=== PATIENT | male | born 1965 | race Caucasian/White ===

== ENCOUNTER 2023-04-03 09:18 | Emergency (ER) | payer BC, SELFPAY ==
[2023-04-03 09:26] VITALS: BP 170/100; PULSE 102; RESP 16; TEMP 36.6; O2SAT 99; BMI 24.4
--- NOTE | 2023-04-03 09:49 | CT_ITS ---
The [address] [address] Patient Name: KEZIA MAYFIELD MRN: [id number] date: 1965 Sex: M Assigned Patient Location: ER Current Patient Location: ER Accession/Order Number: [id number] Exam Date: 04/03/2023 10:10 Report Date: 04/03/2023 11:19 At the request of: LAWRENCE BOLDEN Procedure: CT abdomen pelvis w con CT abdomen pelvis w con, 04/03/2023 10:10 AM EDT INDICATION: Perirectal abscess COMPARISON: No prior CT scan of the abdomen and pelvis provided for comparison at the time of this dictation. TECHNIQUE: Axial images of the abdomen and pelvis were obtained after the administration of IV contrast. Multiplanar reformatted images were generated and reviewed as needed. Dose reduction techniques were achieved by using automated exposure control and/or adjustment of mA and/or kV according to patient size and/or use of iterative reconstruction technique. FINDINGS: No consolidation or effusion. Subcentimeter hypodensity posterior segment right hepatic lobe, too small to characterize. Sludge versus tiny calculi within the gallbladder lumen. The pancreas, spleen and adrenals are unremarkable. Symmetric nephrograms without evidence of obstruction. No urolithiasis. No perivesicular fat stranding. Prostate gland and seminal vesicles unremarkable. No aortic aneurysm. No bowel obstruction or acute focal inflammation. Normal appendix. No pneumatosis, pneumoperitoneum or ascites. No mesenteric or retroperitoneal lymphadenopathy. 2.0 x 1.0 x 4.3 cm left perianal rim enhancing collection. No acute fracture or dislocation. CT/CT abdomen pelvis w con IMPRESSION: 1. Left perianal abscess. 2. Sludge versus small calculi within the gallbladder lumen. No findings to suggest acute cholecystitis. Electronically authenticated by: CHAPARRO COLEMAN Date: 04/03/2023 11:19
[2023-04-03] MEDS: 0.9 % SODIUM CHLORIDE 1,000 ML 1000 ML IV (10:02)
[2023-04-03] MEDS: KETOROLAC TROMETHAMINE 30 MG/ML VIAL IVP (10:03)
[2023-04-03] MEDS: FAMOTIDINE/PF 20 MG/2 ML VIAL IV (10:03)
[2023-04-03 10:10] LABS: Basophils Absolute Auto 0.1 10^3/uL (0.0-0.1); Basophils Percent Auto 0.5 % (0.2-2.0); Eosinophils Absolute Auto 0.3 10^3/uL (0.0-0.7); Eosinophils Percent Auto 2.3 % (0.9-7.0); Hematocrit 43.3 % (42.0-54.0); Hemoglobin 14.5 g/dL (14.0-18.0); Immature Granulocytes Abs Auto 0.03 10^3/uL (0.00-0.03); Immature Granulocytes Pct Auto 0.3 % (0.0-0.5); Lymphocytes Absolute Auto 1.6 10^3/uL (1.2-3.8); Lymphocytes Percent Auto 14.9 % (20.5-60.0); Mean Corpuscular HGB Conc 33.5 g/dL (29.9-35.2); Mean Corpuscular Hemoglobin 30.5 pg (25.9-34.0); Mean Corpuscular Volume 91.2 fL (80.0-94.0); Mean Platelet Volume 8.6 fL (9.5-13.5); Monocytes Absolute Auto 0.7 10^3/uL (0.3-0.8); Neutrophils Absolute Auto 8.2 10^3/uL (1.4-6.5); Platelet Count 323 10^3/uL (150-450); Red Blood Count 4.75 10^6/uL (4.70-6.10); Red Cell Distribution Width 11.8 % (11.0-15.0); White Blood Count 10.8 10^3/uL (4.0-11.0)
[2023-04-03 10:23] LABS: INR 0.96; Prothrombin Time 10.2 sec (9.0-11.6)
[2023-04-03 10:27] LABS: Alanine Aminotransferase 23 U/L (16-63); Albumin Globulin Ratio 0.9; Albumin Level 3.6 g/dL (3.4-5.0); Alkaline Phosphatase 91 U/L (46-116); Anion Gap 10.1; Aspartate Amino Transferase 21 U/L (15-37); BUN Creatinine Ratio 11.1; Bilirubin Total 0.6 mg/dL (0.2-1.0); Calcium 8.9 mg/dL (8.5-10.1); Carbon Dioxide 27.9 mmol/L (21.0-32.0); Chloride 102 mmol/L (98-107); Estimated GFR (African America >60 (>=60); Estimated GFR (Non-African Ame >60 (>=60); Globulin 3.8 g/dL; Glucose 94 mg/dL (74-106); Sodium 136 mmol/L (136-145); Total Protein 7.4 g/dL (6.4-8.2)
[2023-04-03 10:29] LABS: Lactate/Lactic Acid 0.7 mmol/L (0.4-2.0)
[2023-04-03] MEDS: AMOXICILLIN/POTASSIUM CLAV 1 TAB TABLET PO (12:08)
[2023-04-03] MEDS: METRONIDAZOLE/SODIUM CHLORIDE 500 MG/100 ML PREMIX 100 MG IV (12:08)
--- NOTE | 2023-04-03 13:57 | ED.SKABFB1 ---
HPI - Skin/Abscess/Foreign Bdy General Chief complaint: Skin/Abscess/Foreign Body Stated complaint: ABSCESS Time Seen by Provider: 04/03/23 09:45 Source: patient Mode of arrival: walk-in Limitations: no limitations History of Present Illness HPI narrative: The patient have history of perirectal abscess coming to the ER again with similar complaint of abscess and swelling in his left buttock the patient denies any other complaints of fever or chills and he mentioned that this started 3 days ago Related Data Previous Rx's Medication Instructions Recorded amoxicillin 875 mg-potassium 1 tab PO Q12H #20 tabs 04/03/23 clavulanate 125 mg tablet diclofenac sodium 75 mg 75 mg PO Q12H PRN pain #14 tabs 04/03/23 tablet,delayed release tramadol 50 mg tablet 50 mg PO Q8H PRN pain #9 tabs 04/03/23 Allergies Allergy/AdvReac Type Severity Reaction Status Date / Time No Known Drug Allergies Allergy Verified 04/03/23 09:26 Review of Systems ROS Status of ROS 10 or more systems reviewed and unremarkable except as noted in history and below PFSH PFS Social History Smoking status: Current every day smoker Exam Narrative Exam Narrative: Nurses notes and vital signs reviewed and patient is not hypoxic. General: Well-appearing and in no apparent distress. Skin: Warm, dry, no pallor noted. No rash. Head: Normocephalic, atraumatic. Neck: Supple, non-tender. Eye: Pupils are equal, round and EOMI. No scleral icterus. Ears, Nose, Mouth, and Throat: TM are clear, no nasal mucosal hypertrophy. Oral mucosa is moist, no posterior oropharynx erythema, uvula is mid-line Cardiovascular: Regular Rate and Rhythm without murmur, gallop or rub. Respiratory: No accessory muscle use or respiratory distress. Lungs are clear to auscultation, no wheezing, rales or rhonchi Chest Wall: no tenderness Back: No midline thoracic or lumbar vertebral tenderness. No CVA tenderness Musculoskeletal: normal ROM, no calf or popliteal tenderness, no lower extremity edema/swelling GI: Abdomen is soft, non-distended. Normal bowel sounds. No masses appreciated. Rectal examination showed that the patient have some tenderness on palpation of the left just very rectal area and it is deep but not superficial measuring almost 1 to 2 cm and there is no connection to the rectum upon rectal examination there was no tenderness or induration No tenderness to palpation. No rebound, guarding, or rigidity noted. Neurological: A&O x4. No cranial nerve dysfunction observed. No truncal ataxia. Moves all extremities. Sensation intact. Psychiatric: Cooperative and interactive. Normal mood and affect. Constitutional Vital Signs, click to edit/add: Last Vital Signs Temp 97.9 F 04/03/23 09:26 Pulse 102 H 04/03/23 09:26 Resp 16 04/03/23 09:26 BP 170/100 H 04/03/23 09:26 Pulse Ox 99 04/03/23 09:26 O2 Del Method Room Air 04/03/23 09:26 Course Vital Signs Vital signs: Vital Signs Temperature 97.9 F 04/03/23 09:26 Pulse Rate 102 H 04/03/23 09:26 Respiratory Rate 16 04/03/23 09:26 Blood Pressure 170/100 H 04/03/23 09:26 Pulse Oximetry 99 04/03/23 09:26 Oxygen Delivery Method Room Air 04/03/23 09:26 Temperature 97.9 F 04/03/23 09:26 Pulse Rate 102 H 04/03/23 09:26 Respiratory Rate 16 04/03/23 09:26 Blood Pressure 170/100 H 04/03/23 09:26 Pulse Oximetry 99 04/03/23 09:26 Oxygen Delivery Method Room Air 04/03/23 09:26 MDM - Skin/Abscess/Foreign Bdy MDM Narrative Medical decision making narrative: The patient presenting to us with a perirectal abscess with no fever no chills his CBC and chemistry showing no acute significant pathology The CAT scan shows a perirectal abscess and right now the patient symptoms are started 3 days ago I did offer him to call the on-call surgeon for evaluation right now but he wanted to follow-up with his doctor Dr. Rhodes who did the first rectal drainage and I did explain to him that right now he can be discharged with antibiotic as well as pain medication to follow-up with his surgeon as outpatient he is also continue warm sitz bath Provided with Voltaren and tramadol as well as Augmentin The patient is to follow up with primary care physician in next 2-3 days or to return to the emergency department should any of the signs or symptoms worsen or new symptoms develop. The patient agrees with the following Diagnosis and Treatment plan and the patient will be discharged home. Lab Data Labs: Lab Results 04/03/23 Range/Units 10:03 WBC 10.8 (4.0-11.0) 10^3/uL RBC 4.75 (4.70-6.10) 10^6/uL Hgb 14.5 (14.0-18.0) g/dL Hct 43.3 (42.0-54.0) % MCV 91.2 (80.0-94.0) fL MCH 30.5 (25.9-34.0) pg MCHC 33.5 (29.9-35.2) g/dL RDW 11.8 (11.0-15.0) % Plt Count 323 (150-450) 10^3/uL MPV 8.6 L (9.5-13.5) fL Neut % (Auto) 76.0 H (43.0-75.0) % Lymph % (Auto) 14.9 L (20.5-60.0) % Barnes % (Auto) 6.0 (1.7-12.0) % Eos % (Auto) 2.3 (0.9-7.0) % Baso % (Auto) 0.5 (0.2-2.0) % Neut # (Auto) 8.2 H (1.4-6.5) 10^3/uL Lymph # (Auto) 1.6 (1.2-3.8) 10^3/uL Barnes # (Auto) 0.7 (0.3-0.8) 10^3/uL Eos # (Auto) 0.3 (0.0-0.7) 10^3/uL Baso # (Auto) 0.1 (0.0-0.1) 10^3/uL Abs Immat Gran (auto) 0.03 (0.00-0.03) 10^3/uL Imm/Tot Granulo (auto) 0.3 (0.0-0.5) % PT 10.2 (9.0-11.6) sec INR 0.96 Sodium 136 (136-145) mmol/L Potassium 4.0 (3.5-5.1) mmol/L Chloride 102 (98-107) mmol/L Carbon Dioxide 27.9 (21.0-32.0) mmol/L Anion Gap 10.1 BUN 10.0 (7.0-18.0) mg/dL Creatinine 0.90 (0.70-1.30) mg/dL Est GFR ( Amer) >60 (>=60) Est GFR (Non-Af Amer) >60 (>=60) BUN/Creatinine Ratio 11.1 Glucose 94 (74-106) mg/dL Lactate 0.7 (0.4-2.0) mmol/L Calcium 8.9 (8.5-10.1) mg/dL Total Bilirubin 0.6 (0.2-1.0) mg/dL AST 21 (15-37) U/L ALT 23 (16-63) U/L Alkaline Phosphatase 91 (46-116) U/L Total Protein 7.4 (6.4-8.2) g/dL Albumin 3.6 (3.4-5.0) g/dL Globulin 3.8 g/dL Albumin/Globulin Ratio 0.9 Discharge Plan Discharge Chief Complaint: Skin/Abscess/Foreign Body Clinical Impression: Abscess, perianal Patient Disposition: Home, Self-Care Time of Disposition Decision: 12:01 Condition: Good Mode of Transportation: Private Vehicle Prescriptions / Home Meds: New diclofenac sodium 75 mg tablet,delayed release (DR/EC) 75 mg PO Q12H PRN (Reason: pain) Qty: 14 0RF amoxicillin-pot clavulanate 875-125 mg tablet 1 tab PO Q12H Qty: 20 0RF tramadol 50 mg tablet 50 mg PO Q8H PRN (Reason: pain) Qty: 9 0RF Instructions: Rectal Abscess (ED) Stand Alone Forms: Portal Instructions Referrals: Ghulam Rhodes MD [Physician] - As soon as possible STAL[facility] DEL VALLE [Primary Care Provider] - 1 week Discharge Date/Time: 04/03/23 12:48
== END 2023-04-03 12:48 | disposition home or self-care (01) ==
PROVIDERS: Emergency Provider Emergency Medicine; PCP Nurse Practitioner Family
DX: K61.0 Anal abscess (principal); F17.210 Nicotine dependence, cigarettes, uncomplicated
CPT/HCPCS: 36415; 74177; 80053; 83605; 85025; 85610; 96374; 96375; 99284; Q9967

== ENCOUNTER 2023-04-04 07:35 | Emergency (ER) | payer BC, SELFPAY ==
[2023-04-04 07:36] VITALS: BP 148/92; PULSE 77; RESP 18; TEMP 36.3; O2SAT 100; BMI 24.4
--- NOTE | 2023-04-04 07:52 | ED_ITS ---
HPI - General Adult General Chief complaint: Skin/Abscess/Foreign Body Stated complaint: ABSCESS ON REAR Time Seen by Provider: 04/04/23 07:52 Source: patient Mode of arrival: walk-in History of Present Illness HPI narrative: Patient is a 57-year-old male who is presenting to the Emergency Room with chief complaint of pain to left perianal region with an abscess that was diagnosed yesterday on physical exam and CT of the abdomen and pelvis. Patient is also having significant amount of pain. Patient was given Voltaren tablet and Tramadol along with antibiotic. 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 Patient was due to work this morning, cannot work secondary to pain so patient came into the Emergency Room for evaluation. Patient girlfriend at bedside. Patient has something similar to this one year ago in July, patient saw Dr. Rhodes the office and it was drained at that time. Patient has no fever, chills, nausea, vomiting. Patient's having severe pain with ambulation, and any type of pressure sitting on the area. No other acute complaints. Patient tried to pop this Saturdaay night with no success, no pus or anything came out. . All systems are negative except as noted/marked. All systems reviewed and otherwise negative. . Nurses note and vital signs reviewed and patient is not hypoxic. General: The patient appears well and in no apparent distress. Patient is resting comfortably on cart. Patient is not toxic, lethargic, or listless Skin: Warm, dry, no pallor noted. There is no rash noted. No petechiae, purpura. Head: Normocephalic, atraumatic Eye: Normal conjunctiva, no drainage, EOMI. PERRL Ears, Nose, Mouth, and Throat: oral mucosa is moist. Nares patent. Mouth without vesicles. Cardiovascular: Regular Rate and Rhythm, no murmur, gallop, rub Respiratory: Patient is in no distress, no accessory muscle use, lungs are clear to auscultation, no wheezing, rales or rhonchi Back: non-tender, no CVA tenderness bilaterally to percussion. No CT LS midline pain GI: soft, no tenderness to palpation, no masses appreciated. No rebound, guarding, or rigidity noted. No flank pain bilateral, No distention, : Patient has no redness around the anus. Patient is a very small palpable approximate 2 x 1 cm fluctuant area that is not right, no head to the area, no localized fissure, fistula, no drainage at this time. Severe tenderness to palpation. No localized redness, erythema, see list, or any other substance secondary infection. Musculoskeletal: Patient has full range of motion of all of the extremities, no motor, sensory, or focal neurological deficits Neurological: A&O x3, normal speech Psychiatric: Cooperative Related Data Previous Rx's Medication Instructions Recorded amoxicillin 875 mg-potassium 1 tab PO Q12H #20 tabs 04/03/23 clavulanate 125 mg tablet diclofenac sodium 75 mg 75 mg PO Q12H PRN pain #14 tabs 04/03/23 tablet,delayed release tramadol 50 mg tablet 50 mg PO Q8H PRN pain #9 tabs 04/03/23 Allergies Allergy/AdvReac Type Severity Reaction Status Date / Time No Known Drug Allergies Allergy Verified 04/03/23 09:26 PFSH PFSH Social History Smoking status: Current every day smoker Exam Constitutional Vital Signs, click to edit/add: Last Vital Signs Temp 97.4 F L 04/04/23 07:36 Pulse 77 04/04/23 07:36 Resp 18 04/04/23 07:36 BP 148/92 H 04/04/23 07:36 Pulse Ox 100 04/04/23 07:36 O2 Del Method Room Air 04/04/23 07:36 Course Vital Signs Vital signs: Vital Signs Temperature 97.4 F L 04/04/23 07:36 Pulse Rate 77 04/04/23 07:36 Respiratory Rate 18 04/04/23 07:36 Blood Pressure 148/92 H 04/04/23 07:36 Pulse Oximetry 100 04/04/23 07:36 Oxygen Delivery Method Room Air 04/04/23 07:36 Temperature 97.4 F L 04/04/23 07:36 Pulse Rate 77 04/04/23 07:36 Respiratory Rate 18 04/04/23 07:36 Blood Pressure 148/92 H 04/04/23 07:36 Pulse Oximetry 100 04/04/23 07:36 Oxygen Delivery Method Room Air 04/04/23 07:36 Medical Decision Making MDM Narrative Medical decision making narrative: 0738 I had spoken to Dr. Rhodes, he is currently out of town. He recommended incision and drainage, he can follow up with the patient and his [place] office on Tuesday. 844 Secondary to pain out of proportion, patient had IV established, patient was given 1 mg of Dilaudid, a dose of Ancef, incision and drainage will be done. 929 Procedure note performed by Dr. García. Incision and drainage: A single layer of All call swabs x 5 was used to prep the area. Drapes were placed to ensure isolation of the abscess and surrounding skin tissue. A regional field block was performed with 0.5 percent bupivacaine 8ml and 4ml 1% lidocaine, 10cc Total of the mixture was injected. Incision was made with an 11 blade to the full dimension of the abscess 0.5cm, small amount purulent material was expressed. Cultures were obtained and sent to the lab. The abscess was explored, the use of hemostats were used to break up the septum and loculations within the abscess. Plain, 0.25 packing was placed within the abscess. A dry sterile dressing was placed. Patient tolerated the procedure well and will be discharged To continue taking Augmentin. Patient was prescribed tramadol for short course of analgesic medications. Patient is to follow-up in the next 2-3 days with PCP or ED to have area evaluated. Is recommended by Dr. Rhodes to follow-up on Tuesday at the [place] office. Fabby SCOTT was at bedside during the entire procedure of incision and drainage. Patient tolerated procedure well without difficulty. A small amount of present material was drained, wound culture was done. Packing was placed. Patient has already been prescribed Augmentin and tramadol. Work note was given. Patient was very thankful for procedure and for much better at dischargee. Discharge Plan Discharge Chief Complaint: Skin/Abscess/Foreign Body Clinical Impression: Abscess of skin or subcutaneous tissue, Abscess, perianal Patient Disposition: Home, Self-Care Condition: Fair Prescriptions / Home Meds: No Action diclofenac sodium 75 mg tablet,delayed release (DR/EC) 75 mg PO Q12H PRN (Reason: pain) Qty: 14 0RF amoxicillin-pot clavulanate 875-125 mg tablet 1 tab PO Q12H Qty: 20 0RF tramadol 50 mg tablet 50 mg PO Q8H PRN (Reason: pain) Qty: 9 0RF Instructions: Rectal Abscess (ED), Abscess Incision and Drainage (DC), Incision and Drainage (ED) Additional Instructions: Warm sits baths several times a day for the next week. Warm compresses as well every hour, if it continues to drain that is good. The packing should be removed in the next 2 or 3 days, you can remove this yourself. Just pull the string out. If the packing falls out on its own when you're having a bowel movement And it accidentally comes out, that is okay, you do not need to return to the Emergency Room to have it replaced. Finish your antibiotic. Call today to make an appointment with Dr. Rhodes on Tuesday in the [place] office. He will have serosanguineous drainage from the next several days, that is okay. Any other questions follow-up with PCP as well. He is pain medication as needed. Work note given. Stand Alone Forms: Work/School Release, Portal Instructions Referrals: Ghulam Rhodes MD [Physician] - 1 week [facility] DEL VALLE [Primary Care Provider] - 1 week
[2023-04-04] MEDS: HYDROMORPHONE HCL 1 MG/ML CARTRIDGE IVP (08:54)
[2023-04-04] MEDS: LIDOCAINE HCL 1% PF 20 MG/2 ML VIAL 5 ML INJ (08:57)
[2023-04-04] MEDS: BUPIVACAINE HCL 0.5% PF 50 MG/10 ML VIAL INJ (08:57)
== END 2023-04-04 09:53 | disposition home or self-care (01) ==
PROVIDERS: Emergency Provider Emergency Medicine; PCP Nurse Practitioner Family
DX: K61.0 Anal abscess (principal); F17.210 Nicotine dependence, cigarettes, uncomplicated; Z79.899 Other long term (current) drug therapy
CPT/HCPCS: 87070; 87150; 87186; 96374; 96375; 99284; J1170

== ENCOUNTER 2024-03-21 06:45 | Emergency (ER) | payer BC, SELFPAY ==
[2024-03-21 06:48] VITALS: BP 184/135; PULSE 103; TEMP 36.4; O2SAT 98; BMI 24.4
[2024-03-21 07:09] VITALS: BP 160/90
--- NOTE | 2024-03-21 07:14 | ED_ITS ---
HPI HPI - General Adult General Chief complaint: Skin/Abscess/Foreign Body Stated complaint: abscess Time Seen by Provider: 03/21/24 07:05 Source: patient Mode of arrival: walk-in Limitations: no limitations History of Present Illness HPI narrative: Patient presents to ED complaining of an abscess. He states he has had an abscess in the rectal area on and off for the past year and 1/2 to 2 years. This is his fourth time having it. He said he was evaluated by a surgeon 1 time and they drained in their office but otherwise he usually comes to the emergency room. No fevers no nausea vomiting. 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 He does have a lot of pain in the rectal area. He denies constipation. Patient has been trying the sitz bath's but has been unsuccessful.No lower abdominal pain no UTI symptoms. No other complaints at this time Related Data Home Medications ?Medication ?Instructions ?Recorded ?Confirmed lisinopril 20 mg tablet mg 03/21/24 Previous Rx's ?Medication ?Instructions ?Recorded doxycycline hyclate 100 mg capsule 100 mg PO BID 7 days #14 caps 03/21/24 Allergies Allergy/AdvReac Type Severity Reaction Status Date / Time No Known Drug Allergies Allergy Verified 03/21/24 06:53 Opioid HPI Opioid Management Most Recent Opioid Data: Last Pain Scale 10 03/21/24 06:57 Last ED Pain Assessment 03/21/24 06:57 Review of Systems ROS Status of ROS 10 or more systems reviewed and unremark able except as noted in history and below PFSH PFSH Social History Smoking status: Current every day smoker Little interest or pleasure in doing things: not at all Feeling down, depressed, or hopeless: not at all Exam Narrative Exam Narrative: General: alert, no acute distress Cardiovascular: regular rate and rhythm, normal peripheral perfusion. Respiratory: Lungs CTA, respirations non labored. Extremities: no deformity, no trauma. Neurological: oriented x 4, LOC appropriate for age. 2 cm area of induration with mild fluctuance felt in the left side of the gluteus near the the rectum but just lateral to the rectum. Constitutional Vital Signs, click to edit/add: Last Vital Signs Temp 97.5 F L 03/21/24 06:48 Pulse 103 H 03/21/24 06:48 Resp 18 03/21/24 06:48 BP 160/90 H 03/21/24 07:09 Pulse Ox 98 03/21/24 06:48 O2 Del Method Room Air 03/21/24 06:48 Course Vital Signs Vital signs: Vital Signs Temperature 97.5 F L 03/21/24 06:48 Pulse Rate 103 H 03/21/24 06:48 Respiratory Rate 18 03/21/24 06:48 Blood Pressure 184/135 H 03/21/24 06:48 Pulse Oximetry 98 03/21/24 06:48 Oxygen Delivery Method Room Air 03/21/24 06:48 Temperature 97.5 F L 03/21/24 06:48 Pulse Rate 103 H 03/21/24 06:48 Respiratory Rate 18 03/21/24 06:48 Blood Pressure 160/90 H 03/21/24 07:09 Pulse Oximetry 98 03/21/24 06:48 Oxygen Delivery Method Room Air 03/21/24 06:48 Medical Decision Making MDM Narrative Medical decision making narrative: Patient had a perirectal abscess which was drained here in ED. Blood and pus were drained and patient was feeling better after procedure. No packing placed at this time. Patient was instructed to follow-up with general surgery for possible excision of the area that continues to cause an issue. Patient will be placed on doxycycline. Continue sitz bath's. Return to ED if worsening symptoms. Differential Diagnosis Differential Diagnosis: Perirectal abscess, hemorrhoid, thrombosed hemorrhoid, cellulitis Discharge Plan Discharge Chief Complaint: Skin/Abscess/Foreign Body Clinical Impression: Abscess, perianal Patient Disposition: Home, Self-Care Time of Disposition Decision: 08:00 Condition: Good Mode of Transportation: Private Vehicle Prescriptions / Home Meds: New doxycycline hyclate 100 mg capsule 100 mg PO BID 7 Days Qty: 14 0RF No Action lisinopril 20 mg tablet Print Language: Cypriot Instructions: Rectal Abscess (ED), Incision and Drainage (ED) Referrals: Morris Cuevas DO [Physician] - 1 week Ghulam Rhodes MD [Physician] - 1 week [facility] DEL [facility]LE [Primary Care Provider] - 1 week Discharge Date/Time: 03/21/24 08:13 Procedures ED ID Incision & Drainage I&D Type: abcess Site: trina-rectal Side (if applicable): left Sedation/analgesia: none Anesthetic used: lidocaine 1% Technique: incised with #11 blade Amount of fluid (mL): 4 Irrigation: Yes Packing used: none Complications: other (no significant complications)
--- OUTSIDE RECORDS SUMMARY | 2024-03-21 07:15 | XMS_ITS | CCD ---
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 Name Role Phone STALIN DEL VALLE Admitting Unavailable STAILN DEL VALLE Primary Care Unavailable STALIN DEL VALLE Consulting Unavailable STALIN DEL VALLE Attending Unavailable NILL ., DR BALDWIN Consulting Unavailable NILL ., DR BALDWIN Attending Unavailable NILL ., DR BALDWIN Admitting Unavailable STALIN DEL VALLE S Primary Care Physician [phone] Ghulam RHODES Attending Unavailable REINALGhulam Attending Unavailable Ghulam RHODES Attending Unavailable Allergies Allergy Classification Reported Allergen(s) Allergy Type Date of Onset Reaction(s) Facility (1 source) No Known Medication Allergies; Translations: [No Known Medication Allergies] Propensity to adverse reactions (disorder) [facility] Repository Medications Current Medications Medication Drug Class(es) Dates Sig (Normalized) Sig (Original) lisinopril 20 mg oral tablet (1 source) Angiotensin Converting Enzyme Inhibitor Start: 04-07-2023 take 1 tablet by mouth once daily lisinopril 20 mg Tab 20 mg = 1 tab(s), Oral, Daily, Refills(s) 0 Start Date: 04/07/23 Status: Ordered Problems Active Problems Problem Classification Problem Date Documented Da te Episodic/Chronic Anal and rectal conditions (5 sources) Rectal abscess; Translations: [Perirectal abscess] Onset: 08-06-2022 Episodic Essential hypertension (1 source) Hypertensive disorder 08-05-2022 Chronic Hemorrhoids (1 source) Hemorrhoids 08-05-2022 Episodic Substance-related disorders (1 source) Smoker 08-05-2022 Chronic Substance-related disorders (1 source) Marijuana user 08-05-2022 Episodic Unclassified (1 source) Body mass index 20-24 - normal 04-20-2023 Past or Other Problems Problem Classification Problem Date Documented Da te Episodic/Chronic Other screening for suspected conditions (not mental disorders or infectious disease) (1 source) Encounter for screening for malignant neoplasm of prostate; Translations: [ENC SCREEN MALIG NEOPLASM PROSTATE] Onset: 11-05-2021 Episodic Results Test Name Value Interpretation Reference Range Facil ity Ambulatory Visit Summaryon 1 06-20-2022 Ambulatory Visit Summary KEZIA MAYFIELD :1965 Visit Date:04/20/2023 Ambulatory Visit Instructions Your Care Team Attending Physician - IRIS TURNER, Ghulam Fajardo Primary Care Physician - ELIGIO MYRICK, STALIN Carpenter This Is Your Medications List lisinopril (lisinopril 20 mg Tab) Procedures Performed Evacuation of thrombosed hemorrhoid, Evacuation of thrombosed hemorrhoids, Incision and drainage of abscess. Discharge Vitals Heart Rate (Peripheral) 80 Respiratory Rate 16 Blood Pressure 128/86 Height 177.8 cm Height 70 in Weight 77.4 kg Weight 170.28 lb BMI 24.48 Medications What How Much When Instructions Unchanged lisinopril (lisinopril 20 mg Tab) 1 Tablets By Mouth Every day Medications and Immunizations Administered Not Given influenza virus vaccine, inactivated, Patient Refuses Allergies No Known Allergies No Known Medication Allergies Problems Ongoing - Any problem that you are currently receiving treatment for. BMI 24.0-24.9, adult Hemorrhoids HTN (hypertension) Marijuana user Perirectal abscess Smoker Patient Survey You may receive a survey via text or e-mail asking about your office visit. Please share your experience with us by completing your survey. We appreciate your feedback and thank you for choosing us for your care. Normal [facility] ED Note-Physicianon 04-08-20 23 ED Note-Physician [id number] #1.00TIFF [facility] ED Note-Physician [id number] #1.00TIFF [facility] Lab Reportson 04-08-2023 Lab Reports [id number] #1.00TIFF [facility] RAD - CT Reporton 04-08-2023 RAD - CT Report [id number] #1.00TIFF Normal [facility] Facesheeton 08-10-2022 Facesheet [id number] #1.00CD:127 Normal [facility] Lab Reportson 08-10-2022 Lab Reports [id number] #1.00CD:127 Normal [facility] CULTURE WOUNDon 08-09-2022 CULTURE WOUND Culture Observations: NO GROWTH OF ANAEROBES AT 72 HOURS. Isolate 1 Escherichia coli Moderate growth of ORGANISM 1 Escherichia coli ANTIBIOTIC M.I.C RX STATUS Ampicillin <=2 S F Ampicillin/Sulbactam <=2 S F Piperacillin/Tazobac hendricks <=4 S F Cefazolin <=4 S F Ceftazidime <=1 S F Ceftriaxone <=1 S F Ertapenem <=0.5 S F Imipenem <=0.25 S F Amikacin <=2 S F Gentamicin <=1 S F Tobramycin <=1 S F Ciprofloxacin <=0.25 S F Levofloxacin <=0.12 S F Trimethoprim/Sulfame thoxazole <=20 S F Normal [facility] Comment on above: Performed By: #### W OUNDCX #### [facility] [address] [place] [address] Dr. Shmuel Ji Ambulatory Visit Summaryon 0 08-06-2022 Ambulatory Visit Summary KEZIA MAYFIELD :1965 Visit Date:08/06/2022 Ambulatory Visit Instructions Your Diagnosis Perirectal abscess Your Care Team Attending Physician - IRIS TURNER, Ghulam Fajardo Primary Care Physician - STALIN DEL VALLE CNP This Is Your Medications List acetaminophen-hydroc odone ([place] 325 mg-5 mg oral tablet) amoxicillin-clavulan ate (Augmentin 875 mg-125 mg Tab) lisinopril (lisinopril 10 mg Tab) Procedures Performed Evacuation of thrombosed hemorrhoid, Evacuation of thrombosed hemorrhoids. Discharge Vitals Heart Rate (Peripheral) 72 Respiratory Rate 16 Blood Pressure 120/82 Height 177.8 cm Height 70 in Weight 71.8 kg Weight 157.96 lb BMI 22.71 What to do next Scheduled Follow-Up Appointments Tuesday 2:40 PM EST With: IRIS TURNER, Ghulam Fajardo Where: General Surgery Nill/Param [place] Normal [facility] Provider Letter FTon 08-06 Provider Letter [facility] August 06, 2022 KEZIA MAYFIELD [address] [id number] KEZIA MAYFIELD 1965 To Whom It May Concern, Please excuse above patient from work 08/06/22-08/10/22. Sincerely, Dr. Ghulam Rhodes MD General Surgery [facility] Physician Referralon 023 Physician Referral [id number] #1.00CD:127 Normal [facility] INSULINon 11-03-2021 Insulin 5.2 uIU/mL Normal 2.6-24.9 [facility] Comment on above: Performed By: #### I NSULIN #### [facility] [address] [place] [address] Dr. Shmuel Ji TESTOSTERONE, TOTALon 2021 Testosterone [Mass/Vol] 533 ng/dL Normal 264-916 [facility] Comment on above: Result Comment: Adul t male reference interval is based on a population of healthy nonobese males (BMI <30) between 19 and 39 years old. Luke, et.al. JCEM 2017,102;9169-3423. PMID: [id number]. Performed By: #### T ESTTOT #### [facility] [address] [place] [address] Dr. Shmuel Ji CBC AUTO DIFFon 11-02-2021 BASO # 0.1 103/ul Normal 0.0-0.1 [facility] Comment on above: Performed By: #### C BC #### [facility] [address] [address] [address] Shmuel Ji Basophils/100 WBC (Bld) 0.8 % Normal 0.2-2.0 [facility] Comment on above: Performed By: #### C BC #### [facility] [address] [place] [address] Dr. Shmuel Ji EO # 0.2 103/ul Normal 0.0-0.7 [facility] Comment on above: Performed By: #### C BC #### [facility] [address] [place] [address] Dr. Shmuel Ji Eosinophils/100 WBC (Bld) 2.3 % Normal 0.9-7.0 [facility] Comment on above: Performed By: #### C BC #### [facility] [address] [place] [address] Dr. Shmuel Ji Erythrocyte distribution width (RBC) [Ratio] 12.7 % Normal 11.0-15.0 [facility] Comment on above: Performed By: #### C BC #### [facility] [address] [place] [address] Dr. Shmuel Ji Hematocrit (Bld) [Volume fraction] 42.8 % Normal 42.0-54.0 [facility] Comment on above: Performed By: #### C BC #### [facility] [address] [place] [address] Dr. Shmuel Ji Hemoglobin (Bld) [Mass/Vol] 13.9 g/dL Critically low 14.0-18.0 [facility] Comment on above: Performed By: #### C BC #### [facility] [address] [place] [address] Dr. hSmuel Ji IG # 0.02 10e3/ul Normal 0.00-0.03 [facility] Comment on above: Performed By: #### C BC #### [facility] [address] [place] [address] Dr. Shmuel Ji IG % 0.3 % Normal 0.0-0.5 [facility] Comment on above: Performed By: #### C BC #### [facility] [address] [place] [address] Dr. Shmuel Ji LYMPH # 1.6 103/ul Normal 1.2-3.8 [facility] Comment on above: Performed By: #### C BC #### [facility] [address] [address] [address] Shmuel Ji Lymphocytes/100 WBC (Bld) 24.4 % Normal 20.5-60.0 [facility] Comment on above: Performed By: #### C BC #### [facility] [address] [address] [address] Shmuel Ji MANUAL DIFF REQ NO Normal [facility] Comment on above: Performed By: #### C BC #### [facility] [address] [address] [address] Shmuel Ji MCH (RBC) [Entitic mass] 30.8 pg Normal 25.9-34.0 [facility] Comment on above: Performed By: #### C BC #### [facility] [address] [place] [address] Dr. Shmuel Ji MCHC (RBC) [Mass/Vol] 32.5 g/dL Normal 29.9-35.2 [facility] Comment on above: Performed By: #### C BC #### [facility] [address] [place] [address] Dr. Shmuel Ji MCV (RBC) [Entitic vol] 94.7 fL Critically high 80.0-94.0 [facility] Comment on above: Performed By: #### C BC #### [facility] [address] [place] [address] Dr. Shmuel Ji MONO # 0.6 103/ul Normal 0.3-0.8 [facility] Comment on above: Performed By: #### C BC #### [facility] [address] [place] [address] Dr. Shmuel Ji Monocytes/100 WBC (Bld) 9.2 % Normal 1.7-12.0 [facility] Comment on above: Performed By: #### C BC #### [facility] [address] [place] [address] Dr. Shmuel Ji NEUT # 4.1 103/ul Normal 1.4-6.5 [facility] Comment on above: Performed By: #### C BC #### [facility] [address] [place], [place] [id number] Dr. Shmuel Ji Neutrophils/100 WBC (Bld) 63.0 % Normal 43.0-75.0 [facility] Comment on above: Performed By: #### C BC #### [facility] [address] [place] [address] Dr. Shmuel Ji Platelet mean volume (Bld) [Entitic vol] 9.3 fL Critically low 9.5-13.5 [facility] Comment on above: Performed By: #### C BC #### [facility] [address] [address] [address] Shmuel Ji PLT 302 103/ul Normal 150-450 [facility] Comment on above: Performed By: #### C BC #### [facility] [address] [place] [address] Dr. Shmuel Ji RBC 4.52 106/ul Critically low 4.70-6.10 [facility] Comment on above: Performed By: #### C BC #### [facility] [address] [place] [address] Dr. Shmuel Ji WBC 6.4 103/ul Normal 4.0-11.0 [facility] Comment on above: Performed By: #### C BC #### [facility] [address] [place] [address] Dr. Shmuel Ji GLYCOHEMOGLOBIN A1Con 2021 ADA RECOMMENDATION SEE BELOW Normal [facility] Comment on above: Result Comment: ADA RECOMMENDED LIMIT 4.0 - 6.0 ADA THERAPEUTIC TARGET < 7.0 ACTION SUGGESTED > 7.0 Performed By: #### A 1C #### [facility] [address] [place] [address] Dr. Shmuel Ji Glucose [Mass/Vol] 105 mg/dL Normal [facility] Comment on above: Performed By: #### A 1C #### [facility] [address] [place] [address] Dr. Shmuel Ji HbA1c (Bld) [Mass fraction] 5.3 % Normal 4.5-6.2 [facility] Comment on above: Performed By: #### A 1C #### [facility] [address] [address] [address] Shmuel Ji LIPID PROFILEon 11-02-2021 CHOL-HDL RATIO NORM SEE BELOW Normal [facility] Comment on above: Result Comment: 3.3 - 4.4 LOW RISK 4.4 - 7.1 AVERAGE RISK 7.1 - 11.0 MODERATE RISK >11.0 HIGH RISK Performed By: #### L IPID, URIC, CMP #### [facility] [address] [address] [address] Shmuel Ji Cholesterol [Mass/Vol] 176 mg/dL Normal <=200 [facility] Comment on above: Performed By: #### L IPID, URIC, CMP #### [facility] [address] [address] [address] Shmuel Ji Cholesterol in HDL [Mass/Vol] 75 mg/dL Critically high 40-60 [facility] Comment on above: Performed By: #### L IPID, URIC, CMP #### [facility] [address] [address] [address] Shmuel Ji Cholesterol in LDL [Mass/Vol] 93.0 mg/dL Normal [facility] Comment on above: Performed By: #### L IPID, URIC, CMP #### [facility] [address] [address] [address] Shmuel Ji Cholesterol.total/Cho lesterol in HDL [Mass ratio] 2.3 {ratio} Normal [facility] Comment on above: Performed By: #### L IPID, URIC, CMP #### [facility] [address] [address] [address] Shmuel Ji HDL NORMAL > or = 60 mg/dl - LOW CARDIOVASCULAR RISK <40 mg/dl - HIGH CARDIOVASCULAR RISK Normal [facility] Comment on above: Performed By: #### L IPID, URIC, CMP #### [facility] [address] [address] [address] Shmuel Ji LDL CALC NORMAL SEE BELOW Normal [facility] Comment on above: Result Comment: <100 mg/dl OPTIMAL 100 - 129 mg/dl NEAR OR ABOVE OPTIMAL 130 - 159 mg/dl BORDERLINE HIGH 160 - 189 mg/dl HIGH >190 mg/dl VERY HIGH Performed By: #### L IPID, URIC, CMP #### [facility] [address] [address] [address] Shmuel Ji Triglyceride [Mass/Vol] 40 mg/dL Normal <=150 [facility] Comment on above: Performed By: #### L IPID, URIC, CMP #### [facility] [address] [address] [address] Shmuel Ji VLDL CALC 8.0 mg/dL Normal [facility] Comment on above: Performed By: #### L IPID, URIC, CMP #### [facility] [address] [place] [address] Dr. Shmuel Ji PROF 14(COMP METB)on 022 Albumin [Mass/Vol] 3.6 g/dL Normal 3.4-5.0 [facility] Comment on above: Performed By: #### L IPID, URIC, CMP #### [facility] [address] [place] [address] Dr. Shmuel Ji Albumin/Globulin [Mass ratio] 1.1 {ratio} Normal [facility] Comment on above: Performed By: #### L IPID, URIC, CMP #### [facility] [address] [place] [address] Dr. Shmuel Ji ALP [Catalytic activity/Vol] 76 U/L Normal 46-116 [facility] Comment on above: Performed By: #### L IPID, URIC, CMP #### [facility] [address] [address] [address] Shmuel Ji ALT [Catalytic activity/Vol] 22 U/L Normal 16-63 [facility] Comment on above: Performed By: #### L IPID, URIC, CMP #### [facility] [address] [place] [address] Dr. Shmuel Ji Anion gap [Moles/Vol] 11.2 mmol/L Normal [facility] Comment on above: Performed By: #### L IPID, URIC, CMP #### [facility] [address] [place] [address] Dr. Shmuel Ji AST [Catalytic activity/Vol] 23 U/L Normal 15-37 [facility] Comment on above: Performed By: #### L IPID, URIC, CMP #### [facility] [address] [place] [address] Dr. Shmuel Ji Bilirubin [Mass/Vol] 0.3 mg/dL Normal 0.2-1.0 [facility] Comment on above: Performed By: #### L IPID, URIC, CMP #### [facility] [address] [place] [address] Dr. Shmuel Ji Calcium [Mass/Vol] 8.6 mg/dL Normal 8.5-10.1 [facility] Comment on above: Performed By: #### L IPID, URIC, CMP #### [facility] [address] [place] [address] Dr. Shmuel Ji Chloride [Moles/Vol] 105 mmol/L Normal 98-107 [facility] Comment on above: Performed By: #### L IPID, URIC, CMP #### [facility] [address] [place] [address] Dr. Shmuel Ji CO2 [Moles/Vol] 29.2 mmol/L Normal 21.0-32.0 [facility] Comment on above: Performed By: #### L IPID, URIC, CMP #### [facility] [address] [place] [address] Dr. Shmuel Ji Creatinine [Mass/Vol] 0.85 mg/dL Normal 0.70-1.30 [facility] Comment on above: Performed By: #### L IPID, URIC, CMP #### [facility] [address] [place] [address] Dr. Shmuel Ji EGFR-AF SAMOAN >60 Normal >=60 [facility] Comment on above: Performed By: #### L IPID, URIC, CMP #### [facility] [address] [place] [address] Dr. Shmuel Ji EGFR-NON AF SAMOAN >60 Normal >=60 [facility] Comment on above: Performed By: #### L IPID, URIC, CMP #### [facility] [address] [address] [address] Shmuel Ji Globulin (S) [Mass/Vol] 3.4 g/dL Normal [facility] Comment on above: Performed By: #### L IPID, URIC, CMP #### [facility] [address] [address] [address] Shmuel Ji Glucose [Mass/Vol] 97 mg/dL Normal 74-106 [facility] Comment on above: Performed By: #### L IPID, URIC, CMP #### [facility] [address] [address] [address] Shmuel Ji Potassium [Moles/Vol] 4.4 mmol/L Normal 3.5-5.1 [facility] Comment on above: Performed By: #### L IPID, URIC, CMP #### [facility] [address] [place] [address] Dr. Shmuel Ji Protein [Mass/Vol] 7.0 g/dL Normal 6.4-8.2 [facility] Comment on above: Performed By: #### L IPID, URIC, CMP #### [facility] [address] [address] [address] Shmuel Ji Sodium [Moles/Vol] 141 mmol/L Normal 136-145 [facility] Comment on above: Performed By: #### L IPID, URIC, CMP #### [facility] [address] [address] [address] Shmuel Ji Urea nitrogen [Mass/Vol] 16.0 mg/dL Normal 7.0-18.0 [facility] Comment on above: Performed By: #### L IPID, URIC, CMP #### [facility] [address] [address] [address] Shmuel Ji Urea nitrogen/Creatinine [Mass ratio] 18.8 mg/mg Normal [facility] Comment on above: Performed By: #### L IPID, URIC, CMP #### [facility] [address] [place] [address] Dr. Shmuel Ji URIC ACID SERUMon 11-02-2021 Urate [Mass/Vol] 6.6 mg/dL Normal 3.5-7.2 [facility] Comment on above: Performed By: #### L IPID, URIC, CMP #### [facility] [address] [address] [address] Shmuel Ji Vital Signs Date Time Vital Sign Value Performing Clinician Juan villalobos 04-20-2023 14:42-0500 Blood Pressure Location Ghulam NILL [facility] [place] 04-20-2023 14:42-0500 Diastolic blood pressure 86 mm[Hg] Ghulam NILL [facility] [place] 04-20-2023 14:42-0500 Heart rate 80 /min Ghulam NILL [facility] [place] 04-20-2023 14:42-0500 Respiratory rate 16 /min Ghulam NILL [facility] [place] 04-20-2023 14:42-0500 Systolic blood pressure 128 mm[Hg] Ghulam NILL [facility] [place] Encounters Encounter Date Encounter Type Care Provider Facility Start: 04-20-2023 End: 04-21-2023 ambulatory Ghulam RHODES [facility] Start: 04-20-2023 End: 04-20-2023 Patient encounter procedure Ghulam RHODES General Surgery [facility] Start: 08-17-2022 [facility] Start: 08-06-2022 End: 08-06-[address] GHULAM Yan Facility:[facility] Start: 08-06-2022 End: 08-07-2022 ambulatory Ghulam RHODES Facility:[facility] Start: 08-05-2022 ambulatory Ghulam RHODES Facility:[facility] [place] Start: 11-05-2021 Encounter for genera l adult medical examination without abnormal findings STALIN DEL VALLE [facility] Start: 11-02-2021 End: 11-03-2021 ambulatory STALIN DEL VALLE Facility:[facility] Start: 11-02-2021 End: 11-03-2021 Encounter for general adult medical examination without abnormal findings STALIN DEL VALLE Facility:[facility] Procedures Date Procedure Procedure Detail Performing Clinician Start: 11-02-2021 PSA screening STALIN COLLINS Comment on above: Performed By: #### P [facility] #### [facility] [address] [place] [address] Dr. Shmuel Ji Incision and drainag e of abscess Ghulam [employer] Comment on above: perirectal Incision of thrombos ed hemorrhoid Ghulam HUANGL Immunizations Immunization Date Immunization Notes Care Provider Fa cili 06-04-2021 SARS-CoV-2 (COVID-19 ) mRNA-1273 vaccine Ghulam KuGou [facility] Comment on above: Result Comment: 2022: TPV50 10-01-2020 SARS-CoV-2 (COVID-19 ) mRNA-1273 vaccine Ghulam KuGou [facility] Comment on above: Result Comment: 2022: TPV50 09-03-2020 SARS-CoV-2 (COVID-19 ) mRNA-1273 vaccine Ghulam KuGou [facility] Comment on above: Result Comment: 2022: TPV50 NEGATED: Highlighted row has not occurred!04-20-2023 influenza virus vaccine, unspecified formulation Ghulam KuGou [facility] NEGATED: Highlighted row has not occurred!08-06-2022 influenza virus vaccine, unspecified formulation Ghulam HUANGSolmentum [facility] Payers Date Payer Category Payer Unknown [id number] 2.16.84 [id number] 1965 Unknown [id number] 2.16.84 [id number] 1965 Unknown [id number] 2.16.8 [id number] 1965 Unknown [id number] 2.16.8 [id number] 1965 Unknown [id number] 2.16.8 [id number] 1957 Unknown [id number] Social History Date Type Detail Facility Start: 04-20-2023 Tobacco smoking status Light t obacco smoker (finding) [facility] [place] Tobacco smoking status Never Gener al Surgery [place] Sex Assigned At Male [facility] Functional Status Date Assessment Result Facility 04-20-2023 Functional Status N/A [facility]23 Note Date & Type Note Facility 04-21-2023 Note Chief Complaint consultation for perirectal abscess HPI Staff 57 year old male presents on consultation from [place] for perirectal abscess. Presented to ED 04/03 with stated complaint. Prescribed Voltaren, Tramadol and Augmentin. Instructed to do sitz bath. CT ABD/pelvis with perianal abscess. Returned to ED 04/04 with complaint of increase in pain. I/D completed with return of small amount of purulent material. Wound culture with light growth e.coli and klebsiella. Reports he felt significantly better after I/D but pain returned 3 days ago. He does not feel area is swollen. Denies drainage. Completed ATB 7 days ago. No longer doing sitz bath. History of Present Illness 57 yo male with h/o htn, tobacco use, referred from ED for small left perirectal abscess; patient had small left perianal abscess drained in the office 07/2022; reports no pain or drainage until several weeks ago; seen in ED 04/03/23 and 04/04/23, ct revealed small left perianal abscess, had I & D at second visit; treated with Augmentin; cx grew E coli and Klebsiella, both sensitive to Augmentin; had resolution of pain; reports some soreness last several days; no drainage; no fevers; more muscular soreness with activity; stopped doing sitz baths, not taking ibuprofen; normal bms, soft, not straining. Review of Systems ROS - Provider Constitutional: no fever, no sweats, no weight loss. Eyes: no glasses, no blurred vision, no visual loss. ENMT: no dentures, no hoarseness, no swallowing difficulties, no hearing loss, no ear infection(s), no nose bleeds. Cardiovascular: normal blood pressure, no chest pain, regular heartbeat, no heart murmur. Respiratory: no shortness of breath, no cough, no asthma, no wheezing. Gastrointestinal: no nausea, no vomiting, no diarrhea, no constipation, no blood in stool, no change in bowel habits, no abdominal pain, no hepatitis. Genitourinary: no kidney stones, no urine infection, no dysuria. Musculoskeletal: no pain, no weakness. Skin: no changing moles, no rash, no skin lumps. Neurologic: no seizures, no epilepsy, no headache. Psychiatric: no emotional or psychiatric problem. Heme/Lymph: no bleeding problems, no anemia, no blood clots, no transfusions. Allergy/Immunologic: no swollen lymph nodes/glands, no IV drug abuse. Other: Additional ROS info: Except as noted in the above Review of Systems and in the History of Present Illness, all other systems have been reviewed and are negative or noncontributory. Physical Exam Vitals & Measurements HR: 80(Peripheral) RR: 16 BP: 128/86 HT: 70 in HT: 177.8 cm WT: 77.4 kg WT: 170.28 lb BMI: 24.48 rectal: minimal induration left perianal area at site of I & D; no open areas; no drainage, no fluctuance; no bleeding; no significant tenderness. Assessment/Plan 1. Perianal abscess (K61.0: Anal abscess) resolved; minimal soreness with activity; recommend ibuprofen prn; sitz baths prn; no evidence of recurrent/persistent infection; call with problems/questions. Follow-up No qualifying data available Problem List/Past Medical History Ongoing BMI 24.0-24.9, adult Hemorrhoids HTN (hypertension) Marijuana user Perianal abscess Perirectal abscess Smoker Historical No qualifying data Procedure/Surgical History Evacuation of thrombosed hemorrhoid, Evacuation of thrombosed hemorrhoids, Incision and drainage of abscess. Medications lisinopril 20 mg Tab, 20 mg= 1 tab(s), Oral, Daily Allergies No Known Allergies No Known Medication Allergies Social History Alcohol Beer, 1-2 times per week, 08/06/2022 Substance Abuse Current, Marijuana, 1-2 times per month, 08/06/2022 Tobacco 5-9 cigarettes (between 1/4 to 1/2 pack)/day in last 30 days Tobacco Use:. Never Smokeless Tobacco Use:. Cigarettes, 0.25 per day. Started age 20.0 Years. Yes, 04/20/2023 Family History Family history is negative Immunizations Vaccine Date Status Comments influenza virus vaccine, inactivated - Not Given Patient Refuses influenza virus vaccine, inactivated - Not Given Patient Refuses SARS-CoV-2 (COVID-19) mRNA-1273 vaccine 06/04/2021 Recorded 2022-08-06: [id number] SARS-CoV-2 (COVID-19) mRNA-1273 vaccine 10/01/2020 Recorded 2022-08-06: [id number] SARS-CoV-2 (COVID-19) mRNA-1273 vaccine 09/03/2020 Recorded 2022-08-06: [id number] [facility] Comment on above: Result Comment: Elec tronically Signed By: IRIS TURNER, Ghulam Brar\Date and Time Signed: 04/21/23 16:39 EST Clinical Note 08-06-2022 Note Date & Type Note Facility 08-06-2022 Note Chief Complaint consultation for anal pain HPI Staff 56 year old male presents on consultation from Nellie Del Valle for anal pain. Reports pain x 10 days that is constant and finds it difficult to get relief. Has tried Prep H, warm compresses and suppositories. Denies bleeding or drainage. PCP prescribed Augmentin yesterday. History of Present Illness 56 yo male with h/o worsening left anal pain and swelling; began 10 days ago; no fevers, no drainage; started on Augmentin yesterday; h/o thrombosed hemorrhoid excision 15 years ago. patient using preparation H without improvement; only taking Tylenol for pain. Review of Systems PHQ Score Initial Depression Screen Score: 0 ROS - Provider Constitutional: no fever, no sweats, no weight loss. Eyes: no glasses, no blurred vision, no visual loss. ENMT: no dentures, no hoarseness, no swallowing difficulties, no hearing loss, no ear infection(s), no nose bleeds. Cardiovascular: normal blood pressure, no chest pain, regular heartbeat, no heart murmur. Respiratory: no shortness of breath, no cough, no asthma, no wheezing. Gastrointestinal: no nausea, no vomiting, no diarrhea, no constipation, no blood in stool, no change in bowel habits, no abdominal pain, no hepatitis. Genitourinary: no kidney stones, no urine infection, no dysuria. Musculoskeletal: no pain, no weakness. Skin: no changing moles, no rash, no skin lumps. Neurologic: no seizures, no epilepsy, no headache. Psychiatric: no emotional or psychiatric problem. Heme/Lymph: no bleeding problems, no anemia, no blood clots, no transfusions. Allergy/Immunologic: no swollen lymph nodes/glands, no IV drug abuse. Other:severe left anal pain Additional ROS info: Except as noted in the above Review of Systems and in the History of Present Illness, all other systems have been reviewed and are negative or noncontributory. Physical Exam Vitals & Measurements HR: 72(Peripheral) RR: 16 BP: 120/82 HT: 70 in HT: 177.8 cm WT: 71.8 kg WT: 157.96 lb BMI: 22.71 HEENT: normal conjunctiva, sclera clear, no scleral icterus, EOM intact, PERRLA, oral mucosa moist without lesions. Neck: trachea midline, no mass, symmetric, no thyromegaly or nodules, no adenopathy Respiratory: lungs CTA, respirations non labored. Cardiovascular: regular rate and rhythm, no murmur, no pedal edema or varicosities. rectal: decreased tone, mild swelling left posterior perianal area, tender, no cellulitis or erythema, no open areas or drainage; increased fullness near anal canal; no crepitus. Musculoskeletal: normal gait, digits and nails without infection, nodes, cyanosis, clubbing. Skin: no rashes, no lesions, no ulcers, no subcutaneous nodules, induration. Psychiatric/Neuro: oriented to time, place, person, judgement normal, affect appropriate for age, insight intact, no focal deficits. Tests: review of old records completed, Discussed surgical options, risks, and possible complications with patient. Assessment/Plan 1. Perirectal abscess (K61.1: Rectal abscess) I & D under local anesthesia, 2 ml of 1% lidocaine plain; thick purulent material drained and sent for culture; patient to do sitz baths tid; continue Augmentin; [place] sent in for pain control; patient also to take Aleve bid with food; f/u in 4 days; call sooner if problems/questions. Ordered: acetaminophen-hydrocodone, 1 tab(s), Oral, q6hr, 12 tab(s), Refill(s) 0, [id number], 177.8, cm, 08/06/22 13:48:00 EST, Height/Length Dosing, 71.8, kg, 08/06/22 13:48:00 EST, Weight Dosing Wound Culture Wound Culture 2. Tobacco use (Z72.0: Tobacco use) Follow-up No qualifying data available Problem List/Past Medical History Ongoing BMI 22.0-22.9, adult Hemorrhoids HTN (hypertension) Marijuana user Perirectal abscess Smoker Tobacco use Historical No qualifying data Procedure/Surgical History Evacuation of thrombosed hemorrhoid, Evacuation of thrombosed hemorrhoids. Medications Augmentin 875 mg-125 mg Tab, 1 tab(s), Oral, q12hr lisinopril 10 mg Tab, 10 mg= 1 tab(s), Oral, Daily Vicodin 5 mg-300 mg oral tablet, 1 tab(s), Oral, q6hr Allergies No Known Allergies No Known Medication Allergies Social History Alcohol Beer, 1-2 times per week, 08/06/2022 Substance Abuse Current, Marijuana, 1-2 times per month, 08/06/2022 Tobacco 10 or more cigarettes (1/2 pack or more)/day in last 30 days Tobacco Use:. Never Smokeless Tobacco Use:. Cigarettes, Started age 20.0 Years. Yes, 08/06/2022 Family History Family history is negative Immunizations Vaccine Date Status Comments influenza virus vaccine, inactivated - Not Given Patient Refuses SARS-CoV-2 (COVID-19) mRNA-1273 vaccine 06/04/2021 Recorded 2022-08-06: [id number] SARS-CoV-2 (COVID-19) mRNA-1273 vaccine 10/01/2020 Recorded 2022-08-06: [id number] SARS-CoV-2 (COVID-19) mRNA-1273 vaccine 09/03/2020 Recorded 2022-08-06: [id number] [facility] Comment on above: Result Comment: Elec tronically Signed By: IRIS TURNER, Ghulam Brar\Date and Time Signed: 02/24/23 15:26 EST Evaluation + Plan note Note Date & Type Note Facility Evaluation + Plan note No data available for this section [facility] Discharge instructions Note Date & Type Note Facility Hospital Discharge instructions No data available for this section [facility] Progress note Note Date & Type Note Facility Progress note No data available for this section [facility] Summary Purpose Family History No Family History Records Found No data available for this section No Family History Records Found Advance Directives No Advanced Directives Records FoundNo Advanced Directives Records Found Additional Source Comments (unrecognized sect ion and content) No Status Records FoundNo Status Records Found INFORMATION SOURCE (unrecogn ized section and content) DATE CREATED AUTHOR 08/11/2022 [facility] DATE CREATED AUTHOR AUTHOR'S ORGANIZ ATION 04/22/[address] [facility] Patient Care team informatio n (unrecognized section and content) Personnel Name: STALIN DEL VALLE CNP Address: Address: [facility] [facility], [address] FOR RECORDS PERTAINING TO PATIENTS WHO ARE OR HAVE BEEN ENROLLED IN A CHEMICAL DEPENDENCY/SUBSTANCEABUSE PROGRAM, SOME INFORMATION MAY BE OMITTED. This clinical summary was aggregated from multiple sources. Caution should be exercised in using it in the provision of clinical care. This summary normalizes information from multiple sources, and as a consequence, information in this document may materially change the coding, format and clinical context of patient data. In addition, data may be omitted in some cases. CLINICAL DECISIONS SHOULD BE BASED ON THE PRIMARY CLINICAL RECORDS. [facility] provides no warranty or guarantee of the accuracy or completeness of information in this document.
[2024-03-21] MEDS: LIDOCAINE/EPINEPHRINE/TETRACAINE 3 ML GEL.PF.APP TOPICAL (07:22)
[2024-03-21] MEDS: LIDOCAINE HCL 1% 100 MG/10 ML MDV INJ (07:47)
== END 2024-03-21 08:13 | disposition home or self-care (01) ==
PROVIDERS: Emergency Provider Emergency Medicine; PCP Nurse Practitioner Family
DX: K61.1 Rectal abscess (principal); F17.200 Nicotine dependence, unspecified, uncomplicated
CPT/HCPCS: 46040; 99283

== ENCOUNTER 2024-09-25 11:44 | Outpatient (OUT) | payer BC, SELFPAY ==
--- OUTSIDE RECORDS SUMMARY | 2024-09-25 11:49 | XMS_ITS | CCD ---
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 Name Role Phone STALIN DEL VALLE Admitting Unavailable STALIN DEL VALLE Primary Care Unavailable STALIN DEL VALLE Consulting Unavailable STALIN DEL VALLE Attending Unavailable IRIS Yan, DR BALDWIN Consulting Unavailable IRIS Yan, DR BALDWIN Attending Unavailable IRIS Yan, DR BALDWIN Admitting Unavailable STALIN DEL VALLE S Primary Care Physician Ghulam SIMMONS Attending Unavailable Arnold Argueta Referring Unavailable Allergies Allergy Classification Reported Allergen(s) Allergy Type Date of Onset Reaction(s) Facility (1 source) No Known Medication Allergies; Translations: [No Known Medication Allergies] Propensity to adverse reactions (disorder) [facility] Repository Medications Current Medications Medication Drug [...] Results Test Name Value Interpretation Reference Range Abner itjuma Ambulatory Visit Summaryon 0 09-18-2024 Ambulatory Visit Summary Ambulatory Visit Summary KEZIA MAYFIELD :1965 Visit Date:09/18/2024 Ambulatory Visit Instructions Your Care Team Attending Physician - IRIS TURNER, Ghulam Fajardo Primary Care Physician - STALIN DEL VALLE CNP Referring Physician - Arnold Argueta MD This Is Your Medications List Contact prescribing physician if questions or concerns lisinopril (lisinopril 20 mg Tab) Procedures Performed Evacuation of thrombosed hemorrhoid, Evacuation of thrombosed hemorrhoids, Incision and drainage of abscess. Discharge Vitals Heart Rate (Peripheral) 76 Respiratory Rate 16 Blood Pressure 140/96 Height 177.8 cm Height 70 in Weight 76.5 kg Weight 168.653 lb BMI 24.2 Medications What How Much When Instructions Unchanged lisinopril (lisinopril 20 mg Tab) 1 Tablets By Mouth Every day Contact prescribing physician if questions or concerns Allergies No Known Allergies No Known Medication Allergies Problems Ongoing - Any problem that you are currently receiving treatment for. Hemorrhoids HTN (hypertension) Marijuana user Perianal abscess Smoker Patient Survey You may receive a survey via text or e-mail asking about your office visit. Please share your experience with us by completing your survey. We appreciate your feedback and thank you for choosing us for your care. Normal [facility] CULTURE WOUNDon 08-09-2022 CULTURE WOUND Culture [...] F Trimethoprim/Sulfame thoxazole <=20 S F Normal [facility] Comment on above: Performed By: #### W OUNDCX #### [facility] [address] [place] [address] Dr. Shmuel Ji INSULINon 11-03-2021 Insulin 5.2 uIU/mL Normal 2.6-24.9 [facility] Comment on above: Performed By: #### I NSULIN #### [facility] [address] [place] [address] Dr. Shmuel Ji TESTOSTERONE, TOTALon 2021 Testosterone [Mass/Vol] 533 ng/dL Normal 264-916 [facility] Comment on above: Result Comment: Adul t male reference interval is based on a population of healthy nonobese males (BMI <30) between 19 and 39 years old. donita Butler.al. JCEM 2017,102;6584-5215. PMID: [id number]. Performed By: #### T ESTTOT #### [facility] [address] [place] [address] Dr. Shmuel Ji CBC AUTO DIFFon 11-02-2021 BASO # 0.1 103/ul Normal 0.0-0.1 [facility] Comment on above: Performed By: #### C BC #### [facility] [address] [place] [address] Dr. Shmuel Ji Basophils/100 WBC (Bld) 0.8 % Normal 0.2-2.0 [facility] Comment on above: Performed By: #### C BC #### [facility] [address] [place] [address] Dr. Shmuel Ji EO # 0.2 103/ul Normal 0.0-0.7 [facility] Comment on above: Performed By: #### C BC #### [facility] [address] [place] [address] Dr. Shmuel Ji Eosinophils/100 WBC (Bld) 2.3 % Normal 0.9-7.0 [facility] Comment on above: Performed By: #### C BC #### [facility] [address] [place] [address] Dr. Shmuel Ji Erythrocyte distribution width (RBC) [Ratio] 12.7 % Normal 11.0-15.0 [facility] Comment on above: Performed By: #### C BC #### [facility] [address] [place] [address] Dr. Shmuel Ji Hematocrit (Bld) [Volume fraction] 42.8 % Normal 42.0-54.0 [facility] Comment on above: Performed By: #### C BC #### [facility] [address] [place] [address] Dr. Shmuel Ji Hemoglobin (Bld) [Mass/Vol] 13.9 g/dL Critically low 14.0-18.0 [facility] Comment on above: Performed By: #### C BC #### [facility] [address] [place] [address] Dr. Shmuel Ji IG # 0.02 10e3/ul Normal 0.00-0.03 [facility] Comment on above: Performed By: #### C BC #### [facility] [address] [place] [address] Dr. Shmuel Ji IG % 0.3 % Normal 0.0-0.5 [facility] Comment on above: Performed By: #### C BC #### [facility] [address] [place] [address] Dr. Shmuel Ji LYMPH # 1.6 103/ul Normal 1.2-3.8 [facility] Comment on above: Performed By: #### C BC #### [facility] [address] [place] [address] Dr. Shmuel Ji Lymphocytes/100 WBC (Bld) 24.4 % Normal 20.5-60.0 [facility] Comment on above: Performed By: #### C BC #### [facility] [address] [place] [address] Dr. Shmuel Ji MANUAL DIFF REQ NO Normal [facility] Comment on above: Performed By: #### C BC #### [facility] [address] [place] [address] Dr. Shmuel Ji MCH (RBC) [Entitic mass] 30.8 pg Normal 25.9-34.0 [facility] Comment on above: Performed By: #### C BC #### [facility] [address] [address] [address] Shmuel Ji MCHC (RBC) [Mass/Vol] 32.5 g/dL Normal 29.9-35.2 [facility] Comment on above: Performed By: #### C BC #### [facility] [address] [place] [address] Dr. Shmuel Ji MCV (RBC) [Entitic vol] 94.7 fL Critically high 80.0-94.0 [facility] Comment on above: Performed By: #### C BC #### [facility] [address] [place] [address] Dr. Shmuel Ji MONO # 0.6 103/ul Normal 0.3-0.8 [facility] Comment on above: Performed By: #### C BC #### [facility] [address] [place] [address] Dr. Shmuel Ji Monocytes/100 WBC (Bld) 9.2 % Normal 1.7-12.0 [facility] Comment on above: Performed By: #### C BC #### [facility] [address] [place] [address] Dr. Shmuel Ji NEUT # 4.1 103/ul Normal 1.4-6.5 [facility] Comment on above: Performed By: #### C BC #### [facility] [address] [place] [address] Dr. Shmuel Ji Neutrophils/100 WBC (Bld) 63.0 % Normal 43.0-75.0 [facility] Comment on above: Performed By: #### C BC #### [facility] [address] [place] [address] Dr. Shmuel Ji Platelet mean volume (Bld) [Entitic vol] 9.3 fL Critically low 9.5-13.5 [facility] Comment on above: Performed By: #### C BC #### [facility] [address] [place] [address] Dr. Shmuel Ji PLT 302 103/ul Normal 150-450 [facility] Comment on above: Performed By: #### C BC #### [facility] [address] [address] [address] Shmuel Ji RBC 4.52 106/ul Critically low 4.70-6.10 [facility] Comment on above: Performed By: #### C BC #### [facility] [address] [address] [address] Shmuel Ji WBC 6.4 103/ul Normal 4.0-11.0 [facility] Comment on above: Performed By: #### C BC #### [facility] [address] [address] [address] Shmuel Ji GLYCOHEMOGLOBIN A1Con 2021 ADA RECOMMENDATION SEE BELOW Normal [facility] Comment on above: Result Comment: ADA RECOMMENDED LIMIT 4.0 - 6.0 ADA THERAPEUTIC TARGET < 7.0 ACTION SUGGESTED > 7.0 Performed By: #### A 1C #### [facility] [address] [place] [address] Dr. Shmuel Ji Glucose [Mass/Vol] 105 mg/dL Normal [facility] Comment on above: Performed By: #### A 1C #### [facility] [address] [place] [address] Dr. Shmuel Ji HbA1c (Bld) [Mass fraction] 5.3 % Normal 4.5-6.2 [facility] Comment on above: Performed By: #### A 1C #### [facility] [address] [place] [address] Dr. Shmuel Ji LIPID PROFILEon 11-02-2021 CHOL-HDL RATIO NORM SEE BELOW Normal [facility] Comment on above: Result Comment: 3.3 - 4.4 LOW RISK 4.4 - 7.1 AVERAGE RISK 7.1 - 11.0 MODERATE RISK >11.0 HIGH RISK Performed By: #### L IPID, URIC, CMP #### [facility] [address] [place] [address] Dr. Shmuel Ji Cholesterol [Mass/Vol] 176 mg/dL Normal <=200 [facility] Comment on above: Performed By: #### L IPID, URIC, CMP #### [facility] [address] [address] [address] Shmuel Ji Cholesterol in HDL [Mass/Vol] 75 mg/dL Critically high 40-60 [facility] Comment on above: Performed By: #### L IPID, URIC, CMP #### [facility] [address] [address] [address] Shmuel Ji Cholesterol in LDL [Mass/Vol] 93.0 mg/dL Normal [facility] Comment on above: Performed By: #### L IPID, URIC, CMP #### [facility] [address] [address] [address] Shmuel Ji Cholesterol.total/Cho lesterol in HDL [Mass ratio] 2.3 {ratio} Normal [facility] Comment on above: Performed By: #### L IPID, URIC, CMP #### [facility] [address] [address] [address] Shmuel Ji HDL NORMAL > or = 60 mg/dl - LOW CARDIOVASCULAR RISK <40 mg/dl - HIGH CARDIOVASCULAR RISK Normal [facility] Comment on above: Performed By: #### L IPID, URIC, CMP #### [facility] [address] [address] [address] Shmuel Ji LDL CALC NORMAL SEE BELOW Normal [facility] Comment on above: Result Comment: <100 mg/dl OPTIMAL 100 - 129 mg/dl NEAR OR ABOVE OPTIMAL 130 - 159 mg/dl BORDERLINE HIGH 160 - 189 mg/dl HIGH >190 mg/dl VERY HIGH Performed By: #### L IPID, URIC, CMP #### [facility] [address] [place] [address] Dr. Shmuel Ji Triglyceride [Mass/Vol] 40 mg/dL Normal <=150 [facility] Comment on above: Performed By: #### L IPID, URIC, CMP #### [facility] [address] [place] [address] Dr. Shmuel Ji VLDL CALC 8.0 mg/dL Normal [facility] Comment on above: Performed By: #### L IPID, URIC, CMP #### [facility] [address] [address] [address] Shmuel Ji PROF 14(COMP METB)on 022 Albumin [Mass/Vol] 3.6 g/dL Normal 3.4-5.[address] [facility] Comment on above: Performed By: #### L IPID, URIC, CMP #### [facility] [address] [address] [address] Shmuel Ji Albumin/Globulin [Mass ratio] 1.1 {ratio} Normal [facility] Comment on above: Performed By: #### L IPID, URIC, CMP #### [facility] [address] [address] [address] Shmuel Ji ALP [Catalytic activity/Vol] 76 U/L Normal 46-116 [facility] Comment on above: Performed By: #### L IPID, URIC, CMP #### [facility] [address] [place] [address] Dr. Shmuel Ji ALT [Catalytic activity/Vol] 22 U/L Normal 16-63 [facility] Comment on above: Performed By: #### L IPID, URIC, CMP #### [facility] [address] [address] [address] Shmuel Ji Anion gap [Moles/Vol] 11.2 mmol/L Normal [facility] Comment on above: Performed By: #### L IPID, URIC, CMP #### [facility] [address] [address] [address] Shmuel Ji AST [Catalytic activity/Vol] 23 U/L Normal 15-37 [facility] Comment on above: Performed By: #### L IPID, URIC, CMP #### [facility] [address] [address] [address] Shmuel Ji Bilirubin [Mass/Vol] 0.3 mg/dL Normal 0.2-1.0 [facility] Comment on above: Performed By: #### L IPID, URIC, CMP #### [facility] [address] [address] [address] Shmuel Ji Calcium [Mass/Vol] 8.6 mg/dL Normal 8.5-10.[address] [facility] Comment on above: Performed By: #### L IPID, URIC, CMP #### [facility] [address] [address] [address] Shmuel Ji Chloride [Moles/Vol] 105 mmol/L Normal 98-107 [facility] Comment on above: Performed By: #### L IPID, URIC, CMP #### [facility] [address] [place] [address] Dr. Shmuel Ji CO2 [Moles/Vol] 29.2 mmol/L Normal 21.0-32.0 [facility] Comment on above: Performed By: #### L IPID, URIC, CMP #### [facility] [address] [place] [address] Dr. Shmuel Ji Creatinine [Mass/Vol] 0.85 mg/dL Normal 0.70-1.30 [facility] Comment on above: Performed By: #### L IPID, URIC, CMP #### [facility] [address] [place] [address] Dr. Shmuel Ji EGFR-AF KITTITIAN >60 Normal >=60 [facility] Comment on above: Performed By: #### L IPID, URIC, CMP #### [facility] [address] [place] [address] Dr. Shmuel Ji EGFR-NON AF KITTITIAN >60 Normal >=60 [facility] Comment on above: Performed By: #### L IPID, URIC, CMP #### [facility] [address] [place] [address] Dr. Shmuel Ji Globulin (S) [Mass/Vol] 3.4 g/dL Normal [facility] Comment on above: Performed By: #### L IPID, URIC, CMP #### [facility] [address] [place] [address] Dr. Shmuel Ji Glucose [Mass/Vol] 97 mg/dL Normal 74-106 [facility] Comment on above: Performed By: #### L IPID, URIC, CMP #### [facility] [address] [place] [address] Dr. Shmuel Ji Potassium [Moles/Vol] 4.4 mmol/L Normal 3.5-5.1 [facility] Comment on above: Performed By: #### L IPID, URIC, CMP #### [facility] [address] [place] [address] Dr. Shmuel Ji Protein [Mass/Vol] 7.0 g/dL Normal 6.4-8.2 [facility] Comment on above: Performed By: #### L IPID, URIC, CMP #### [facility] [address] [place] [address] Dr. Shmuel Ji Sodium [Moles/Vol] 141 mmol/L Normal 136-145 [facility] Comment on above: Performed By: #### L IPID, URIC, CMP #### [facility] [address] [place] [address] Dr. Shmuel Ji Urea nitrogen [Mass/Vol] 16.0 mg/dL Normal 7.0-18.0 [facility] Comment on above: Performed By: #### L IPID, URIC, CMP #### [facility] [address] [place] [address] Dr. Shmuel Ji Urea nitrogen/Creatinine [Mass ratio] 18.8 mg/mg Normal [facility] Comment on above: Performed By: #### L IPID, URIC, CMP #### [facility] [address] [place] [address] Dr. Shmuel Ji URIC ACID SERUMon 11-02-2021 Urate [Mass/Vol] 6.6 mg/dL Normal 3.5-7.2 [facility] Comment on above: Performed By: #### L IPID, URIC, CMP #### [facility] [address] [place] [address] Dr. Shmuel Ji Vital Signs Date Time Vital Sign Value Performing Clinician Juan villalobos 04-20-2023 14:42-0500 Blood Pressure Location Ghulam SIMMONS [facility] [place] 04-20-2023 14:42-0500 Diastolic blood pressure 86 mm[Hg] Ghulam SIMMONS [facility] [place] 11-08-2023 14:42-0500 Heart rate 80 /min Ghulam SIMMONS [facility] [place] 04-20-2023 14:42-0500 Respiratory rate 16 /min Ghulam SIMMONS [facility] [place] 04-20-2023 14:42-0500 Systolic blood pressure 128 mm[Hg] Ghulam SIMMONS [facility] Encounters Encounter Date Encounter Type Care Provider Facility Start: 09-18-2024 End: 09-18-2024 ambulatory Ghulam SIMMONS Facility:[facility] Start: 04-20-2023 End: 04-20-2023 Patient encounter procedure Ghulam SIMMONS General [facility] Start: 08-06-2022 End: 08-06-[address] GHULAM SIMMONS . Facility: Start: 11-05-2021 Encounter for genera l adult medical examination without abnormal findings STALIN DEL VALLE [facility] Start: 11-02-2021 End: 11-03-2021 ambulatory STALIN DEL VALLE Facility:[facility] Start: 11-02-2021 End: 11-03-2021 Encounter for general adult medical examination without abnormal findings STALIN DEL VALLE Facility: Procedures Date Procedure Procedure Detail Performing Clinician Start: 11-02-2021 PSA screening STALIN COLLINS Comment on above: Performed By: #### [facility] #### [facility] [address] [place] [address] Dr. Shmuel Ji Incision and drainag e of abscess Ghulam SIMMONS Comment on above: perirectal Incision of thrombos ed hemorrhoid Ghulam SIMMONS Immunizations Immunization Date Immunization Notes Care Provider Fa ciliave 06-04-2021 SARS-CoV-2 (COVID-19 ) mRNA-1273 vaccine Ghulam HUANGL [facility] Comment on above: Result Comment: 2022: TPV50 10-01-2020 SARS-CoV-2 (COVID-19 ) mRNA-1273 vaccine Ghulam NILL [facility] Comment on above: Result Comment: 2022: TPV50 09-03-2020 SARS-CoV-2 (COVID-19 ) mRNA-1273 vaccine Ghulam SIMMONS [facility] Comment on above: Result Comment: 2022: TPV50 NEGATED: Highlighted row has not occurred!04-20-2023 influenza virus vaccine, unspecified formulation Ghulam SIMMONS [facility] NEGATED: Highlighted row has not occurred!08-06-2022 influenza virus vaccine, unspecified formulation Ghulam SIMMONS [facility] Payers Date Payer Category Payer Unknown [id number] 1965 Unknown [id number] 1965 Unknown [id number] 1957 Unknown [id number] Social History Date Type Detail Facility Start: 04-20-2023 Tobacco smoking status Light t obacco smoker (finding) [facility] Tobacco smoking status Never [facility] [place] Sex Assigned At Male [facility] Functional Status Date Assessment Result Facility 04-20-2023 Functional Status N/A [facility] Clinical Note 09-18-2024 Note Date & Type Note Facility 09-18-2024 Note General Surgery Offi ce/Clinic Note Chief Complaint consultation for rectal bleeding HPI Staff 58 year old male presents on consultation from Dr. Argueta for rectal bleeding. Reports longstanding history of intermittent bright red blood per rectum. Reports this is only with bowel movements. He verbalized blood on toilet tissue and in toilet water. Reports occasional blood clots. Denies rectal pain. Denies abdominal pain, nausea or vomiting. Denies bowel changes. Patient with history of perianal abscesses and thrombosed hemorrhoids. No previous colonoscopy. Grandfather with history of colon cancer, age unknown. No known family history of IBD. History of Present Illness 58 yo male with h/o htn, referred for intermittent rectal bleeding; patient reports several month h/o intermittent rectal bleeding with bms, red blood, occasional clots, no change in bms, no straining or hard stools; no rectal pain; some blood with wiping and in toilet bowel; no asa or NSAID use; no previous colonoscopy; no abd operations; h/o thrombosed hemorrhoid in past and perianal abscess 2 years ago; smokes daily; fmhx of colon cancer in grandfather, no fmhx of IBD. Review of Systems PHQ Score Initial Depression Screen Score: 0 SCORE ROS - Provider Constitutional: no fever, no [...] noncontributory. Physical Exam Vitals & Measurements HR: 76(Peripheral) RR: 16 BP: 140/96 HT: 70 in HT: 177.8 cm WT: 168.653 lb WT: 76.5 kg BMI: 24.2 HEENT: normal conjunctiva, sclera clear, no scleral icterus, EOM intact, PERRLA, oral mucosa moist without lesions. Neck: trachea midline, no mass, symmetric, no thyromegaly or nodules, no adenopathy Respiratory: lungs CTA, respirations non labored. Cardiovascular: regular rate and rhythm, no murmur, no pedal edema or varicosities. Gastrointestinal: soft, non distended, no tenderness, no masses, no palpable hernias, diastasis recti no, no hepatosplenomegaly; normal bs Lymphatic: no cervical adenopathy, no supraclavicular adenopathy. Musculoskeletal: normal gait, digits and nails without infection, nodes, cyanosis, clubbing. Skin: no rashes, no lesions, no ulcers, no subcutaneous nodules, induration. Psychiatric/Neuro: oriented to time, place, person, judgement normal, affect appropriate for age, insight intact, no focal deficits. Tests: , review of old records completed , Discussed surgical options, risks, and possible complications with patient. Assessment/Plan 1. Rectal bleeding (K62.5: Hemorrhage of anus and rectum) plan colonoscopy under anesthesia, informed consent obtained. Follow-up No qualifying data available Problem List/Past Medical History Ongoing Hemorrhoids HTN (hypertension) Marijuana user Perianal abscess Rectal bleeding Smoker Historical No qualifying data Procedure/Surgical History Evacuation of thrombosed hemorrhoid, Evacuation of thrombosed hemorrhoids, Incision and drainage of abscess. Medications lisinopril 20 mg Tab, 20 mg= 1 tab(s), Oral, Daily Allergies No Known Allergies No Known Medication Allergies Social History Alcohol Current, Beer, 3-5 times per week, 09/18/2024 Substance Abuse Current, Marijuana, 3-5 times per week, Previous treatment: None., 09/18/2024 Tobacco 10 or more cigarettes (1/2 pack or more)/day in last 30 days Tobacco Use:. Never Smokeless Tobacco Use:. Cigarettes, 0.5 per day. Started age 25.0 Years. Yes, 09/18/2024 Family History Diabetes mellitus type 2: Mother. Hypertension: Mother and Father. Parkinson disease: Father. Immunizations Vaccine Date Status Comments influenza virus vaccine, inactivated - Not Given Patient Refuses influenza virus vaccine, inactivated - Not Given Patient Refuses SARS-CoV-2 (COVID-19) mRNA-1273 vaccine 06/04/2021 Recorded 2022-08-06: TPV50 SARS-CoV-2 (COVID-19) mRNA-1273 vaccine 10/01/2020 Recorded 2022-08-06: TPV50 SARS-CoV-2 (COVID (more content not included)... [facility] Comment on above: Result Comment: Elec tronically Signed By: IRIS TURNER, Ghulam Brar\Date and Time Signed: 09/18/24 14:19 EDT Evaluation + Plan note Note Date & Type Note Facility Evaluation + Plan note No data available for this section [facility] Discharge instructions Note Date & Type Note Facility Hospital Discharge instructions No data available for this section [facility] note Note Date & Type Note Facility Progress note No data available for this section [facility] [place] Summary Purpose Family History No Family History Records Found No data available for this section No Family History Records Found Advance Directives No Advanced Directives Records FoundNo Advanced Directives Records Found Additional Source Comments (unrecognized sect ion and content) No Status Records FoundNo Status Records Found INFORMATION SOURCE (unrecogn ized section and content) DATE CREATED AUTHOR 08/11/2022 [facility] DATE CREATED AUTHOR AUTHOR'S ORGANIZ ATION 09/19/2024 [facility] Patient Care team informatio n (unrecognized section and content) Personnel Name: STALIN DEL VALLE CNP Address: Address: [facility], [address] FOR RECORDS PERTAINING TO PATIENTS WHO [...] BE BASED ON THE PRIMARY CLINICAL RECORDS. [employer] provides no warranty or guarantee of the accuracy or completeness of information in this document.
== END 2024-09-25 11:45 | disposition home or self-care (01) ==
LOC: PST 11:44
PROVIDERS: PCP Nurse Practitioner Family; Visit Provider Surgery
DX: Z01.818 Encounter for other preprocedural examination (principal); K62.5 Hemorrhage of anus and rectum

== ENCOUNTER 2024-09-26 06:15 | Day surgery (SDC) | payer BC, SELFPAY ==
--- NOTE | 2024-09-26 | OP_ITS ---
OPERATION DATE: 09/26/2024 PREOPERATIVE DIAGNOSIS: Rectal bleeding. POSTOPERATIVE DIAGNOSIS: 2 mm descending colon polyp and 3 mm rectal polyp, as well as prominent rectal veins. PROCEDURE: Colonoscopy to cecum with cold biopsy forceps polypectomy x2. SURGEON: Ghulam Rhodes M.D. ANESTHESIA: Monitored anesthesia care. ESTIMATED BLOOD LOSS: Less than 1 mL. INDICATIONS AND CONSENT: Patient is a 58-year-old male with history of intermittent rectal bleeding with bowel movements. Indications, risks, benefits, alternatives of proceeding with colonoscopy were explained extensively to the patient, including the risks of bleeding, colon perforation or anesthetic complications. All of his questions were answered. Informed consent was obtained. PROCEDURE: Patient brought to the operating room, placed in the left lateral decubitus position. Monitored anesthesia care was provided. Rectal exam was performed which showed no masses or blood. The scope was inserted into the anal canal. Under direct visualization was advanced. With the aid of abdominal compression, it was advanced to the cecum where cecal markings were clearly identified. There was noted to be a good prep. Upon withdrawal of the scope, mucosal surfaces were carefully examined. There were no mass lesions or inflammatory changes. There was mild sigmoid diverticulosis. Within the descending colon, there was noted to be a 2 mm sessile polyp that was removed with cold biopsy forceps with good hemostasis. Within the rectum, there was noted to be a 3 mm sessile polyp that was also removed with cold biopsy forceps with good hemostasis. The scope was retroflexed in the anal canal. There were prominent rectal veins. No evidence of old or new blood or stigmata of recent bleeding. The scope was then withdrawn. Patient tolerated procedure well, was sent to recovery room in good condition. Follow up colonoscopy likely in five years but will depend on the pathology report. CC: RAMEZ Horn
--- OUTSIDE RECORDS SUMMARY | 2024-09-26 06:17 | XMS_ITS | CCD ---
Author Organization [facility] Inform ion Partnership [facility] Care Team Providers Care Emt B Name Role Phone STALIN DEL VALLE Admitting Unavailable STALIN DEL VALLE Primary Care Unavailable STALIN DEL VALLE Consulting Unavailable STALIN DEL VALLE Attending Unavailable IRIS Yan, DR BALDWIN Consulting Unavailable IRIS Yan, DR BALDWIN Attending Unavailable IRIS Yan, DR BALDWIN Admitting Unavailable STALIN DEL VALLE S Primary Care Physician [phone] Ghulam SIMMONS Attending Unavailable Arnold Argueta Referring Unavailable Allergies Allergy Classification Reported Allergen(s) Allergy Type Date of Onset Reaction(s) Facility (1 source) No Known Medication Allergies; Translations: [No Known Medication Allergies] Propensity to adverse reactions (disorder) [facility] Repository Medications Current Medications Medication [...] for choosing us for your care. Normal [facility] CULTURE WOUNDon 08-09-2022 CULTURE WOUND [...] F Trimethoprim/Sulfame thoxazole <=20 S F Normal [facility] Comment on above: Performed By: #### W OUNDCX #### [facility] [address] [place] [address] Dr. Shmuel Ji INSULINon 11-03-2021 Insulin 5.2 uIU/mL Normal 2.6-24.9 [facility] Comment on above: Performed By: #### I NSULIN #### [facility] [address] [place] [address] Dr. Shmuel Ji TESTOSTERONE, TOTALon 2021 Testosterone [Mass/Vol] 533 ng/dL Normal 264-916 [facility] Comment on above: Result Comment: Adul t male reference interval is based on a population of healthy nonobese males (BMI <30) between 19 and 39 years old. donita Butler.al. JCEM 2017,102;[id number]. PMID: [id number]. Performed By: #### T ESTTOT #### [facility] [address] [place] [address] Dr. Shmuel Ji CBC AUTO DIFFon 11-02-2021 BASO # 0.1 103/ul Normal 0.0-0.1 [facility] Comment on above: Performed By: #### C BC #### [facility] [address] [place] [address] Dr. Shmuel Ji Basophils/100 WBC (Bld) 0.8 % Normal 0.2-2.0 [facility] Comment on above: Performed By: #### C BC #### [facility] [address] [place] [address] Dr. Shmuel Ji EO # 0.2 103/ul Normal 0.0-0.7 [facility] Comment on above: Performed By: #### C BC #### [facility] [address] [place] [address] Dr. Shmuel Ji Eosinophils/100 WBC (Bld) 2.3 % Normal 0.9-7.0 [facility] Comment on above: Performed By: #### C BC #### [facility] [address] [place] [address] Dr. Shmuel Ji Erythrocyte distribution width (RBC) [Ratio] 12.7 % Normal 11.0-15.0 [facility] Comment on above: Performed By: #### C BC #### [facility] [address] [place] [address] Dr. Shmuel Ji Hematocrit (Bld) [Volume fraction] 42.8 % Normal 42.0-54.0 [facility] Comment on above: Performed By: #### C BC #### [facility] [address] [place] [address] Dr. Shmuel Ji Hemoglobin (Bld) [Mass/Vol] 13.9 g/dL Critically low 14.0-18.0 [facility] Comment on above: Performed By: #### C BC #### [facility] [address] [place] [address] Dr. Shmuel Ji IG # 0.02 10e3/ul Normal 0.00-0.03 [facility] Comment on above: Performed By: #### C BC #### [facility] [address] [place] [address] Dr. Shmuel Ji IG % 0.3 % Normal 0.0-0.5 [facility] Comment on above: Performed By: #### C BC #### [facility] [address] [place] [address] Dr. Shmuel Ji LYMPH # 1.6 103/ul Normal 1.2-3.8 [facility] Comment on above: Performed By: #### C BC #### [facility] [address] [place] [address] Dr. Shmuel Ji Lymphocytes/100 WBC (Bld) 24.4 % Normal 20.5-60.0 [facility] Comment on above: Performed By: #### C BC #### [facility] [address] [place] [address] Dr. Shmuel Ji MANUAL DIFF REQ NO Normal [facility] Comment on above: Performed By: #### C BC #### [facility] [address] [place] [address] Dr. Shmuel Ji MCH (RBC) [Entitic mass] 30.8 pg Normal 25.9-34.0 [facility] Comment on above: Performed By: #### C BC #### [facility] [address] [address] [address] Shmuel Ji MCHC (RBC) [Mass/Vol] 32.5 g/dL Normal 29.9-35.2 [facility] Comment on above: Performed By: #### C BC #### [facility] [address] [place] [address] Dr. Shmuel Ji MCV (RBC) [Entitic vol] 94.7 fL Critically high 80.0-94.0 [facility] Comment on above: Performed By: #### C BC #### [facility] [address] [place] [address] Dr. Shmuel Ji MONO # 0.6 103/ul Normal 0.3-0.8 [facility] Comment on above: Performed By: #### C BC #### [facility] [address] [place] [address] Dr. Shmuel Ji Monocytes/100 WBC (Bld) 9.2 % Normal 1.7-12.0 [facility] Comment on above: Performed By: #### C BC #### [facility] [address] [place] [address] Dr. Shmuel Ji NEUT # 4.1 103/ul Normal 1.4-6.5 [facility] Comment on above: Performed By: #### C BC #### [facility] [address] [place] [address] Dr. Shmuel Ji Neutrophils/100 WBC (Bld) 63.0 % Normal 43.0-75.0 [facility] Comment on above: Performed By: #### C BC #### [facility] [address] [place] [address] Dr. Shmuel Ji Platelet mean volume (Bld) [Entitic vol] 9.3 fL Critically low 9.5-13.5 [facility] Comment on above: Performed By: #### C BC #### [facility] [address] [place] [address] Dr. Shmuel Ji PLT 302 103/ul Normal 150-450 [facility] Comment on above: Performed By: #### C BC #### [facility] [address] [address] [address] Shmuel Ji RBC 4.52 106/ul Critically low 4.70-6.[address] [facility] Comment on above: Performed By: #### C BC #### [facility] [address] [address] [address] Shmuel Ji WBC 6.4 103/ul Normal 4.0-11.0 [facility] Comment on above: Performed By: #### C BC #### [facility] [address] [address] [address] Shmuel Ji GLYCOHEMOGLOBIN A1Con 2021 ADA RECOMMENDATION SEE BELOW Normal [facility] Comment on above: Result Comment: ADA RECOMMENDED LIMIT 4.0 - 6.0 ADA THERAPEUTIC TARGET < 7.0 ACTION SUGGESTED > 7.0 Performed By: #### A 1C #### [facility] [address] [place] [address] Dr. Shmuel Ji Glucose [Mass/Vol] 105 mg/dL Normal [facility] Comment on above: Performed By: #### A 1C #### [facility] [address] [place] [address] Dr. Shmuel Ji HbA1c (Bld) [Mass fraction] 5.3 % Normal 4.5-6.2 [facility] Comment on above: Performed By: #### A 1C #### [facility] [address] [place] [address] Dr. Shmuel Ji LIPID PROFILEon 11-02-2021 CHOL-HDL RATIO NORM SEE BELOW Normal [facility] Comment on above: Result Comment: 3.3 - 4.4 LOW RISK 4.4 - 7.1 AVERAGE RISK 7.1 - 11.0 MODERATE RISK >11.0 HIGH RISK Performed By: #### L IPID, URIC, CMP #### [facility] [address] [place] [address] Dr. Shmuel Ji Cholesterol [Mass/Vol] 176 mg/dL Normal <=200 [facility] Comment on above: Performed By: #### L IPID, URIC, CMP #### [facility] [address] [address] [address] Shmuel Ji Cholesterol in HDL [Mass/Vol] 75 mg/dL Critically high 40-60 [facility] Comment on above: Performed By: #### L IPID, URIC, CMP #### [facility] [address] [address] [address] Shmuel Ji Cholesterol in LDL [Mass/Vol] 93.0 mg/dL Normal [facility] Comment on above: Performed By: #### L IPID, URIC, CMP #### [facility] [address] [address] [address] Shmuel Ji Cholesterol.total/Cho lesterol in HDL [Mass ratio] 2.3 {ratio} Normal [facility] Comment on above: Performed By: #### L IPID, URIC, CMP #### [facility] [address] [address] [address] Shmuel Ji HDL NORMAL > or = 60 mg/dl - LOW CARDIOVASCULAR RISK <40 mg/dl - HIGH CARDIOVASCULAR RISK Normal [facility] Comment on above: Performed By: #### L IPID, URIC, CMP #### [facility] [address] [address] [address] Shmuel Ji LDL CALC NORMAL SEE BELOW Normal [facility] Comment on above: Result Comment: <100 mg/dl OPTIMAL 100 - 129 mg/dl NEAR OR ABOVE OPTIMAL 130 - 159 mg/dl BORDERLINE HIGH 160 - 189 mg/dl HIGH >190 mg/dl VERY HIGH Performed By: #### L IPID, URIC, CMP #### [facility] [address] [place] [address] Dr. Shmuel Ji Triglyceride [Mass/Vol] 40 mg/dL Normal <=150 [facility] Comment on above: Performed By: #### L IPID, URIC, CMP #### [facility] [address] [place] [address] Dr. Shmuel Ji VLDL CALC 8.0 mg/dL Normal [facility] Comment on above: Performed By: #### L IPID, URIC, CMP #### [facility] [address] [address] [address] Shmuel Ji PROF 14(COMP METB)on 022 Albumin [Mass/Vol] 3.6 g/dL Normal 3.4-5.0 [facility] Comment on above: Performed By: #### L IPID, URIC, CMP #### [facility] [address] [address] [address] Shmuel Ji Albumin/Globulin [Mass ratio] 1.1 {ratio} Normal [facility] Comment on above: Performed By: #### L IPID, URIC, CMP #### [facility] [address] [address] [address] Shmuel Ji ALP [Catalytic activity/Vol] 76 U/L Normal 46-116 [facility] Comment on above: Performed By: #### L IPID, URIC, CMP #### [facility] [address] [place] [address] Dr. Shmuel Ji ALT [Catalytic activity/Vol] 22 U/L Normal 16-63 [facility] Comment on above: Performed By: #### L IPID, URIC, CMP #### [facility] [address] [address] [address] Shmuel Ji Anion gap [Moles/Vol] 11.2 mmol/L Normal [facility] Comment on above: Performed By: #### L IPID, URIC, CMP #### [facility] [address] [address] [address] Shmuel Ji AST [Catalytic activity/Vol] 23 U/L Normal 15-37 [facility] Comment on above: Performed By: #### L IPID, URIC, CMP #### [facility] [address] [address] [address] Shmuel Ji Bilirubin [Mass/Vol] 0.3 mg/dL Normal 0.2-1.0 [facility] Comment on above: Performed By: #### L IPID, URIC, CMP #### [facility] [address] [address] [address] Shmuel Ji Calcium [Mass/Vol] 8.6 mg/dL Normal 8.5-10.1 [facility] Comment on above: Performed By: #### L IPID, URIC, CMP #### [facility] [address] [address] [address] Shmuel Ji Chloride [Moles/Vol] 105 mmol/L Normal 98-107 [facility] Comment on above: Performed By: #### L IPID, URIC, CMP #### [facility] [address] [place] [address] Dr. Shmuel Ji CO2 [Moles/Vol] 29.2 mmol/L Normal 21.0-32.0 [facility] Comment on above: Performed By: #### L IPID, URIC, CMP #### [facility] [address] [place] [address] Dr. Shmuel Ji Creatinine [Mass/Vol] 0.85 mg/dL Normal 0.70-1.30 [facility] Comment on above: Performed By: #### L IPID, URIC, CMP #### [facility] [address] [place] [address] Dr. Shmuel Ji EGFR-AF [facility] >60 Normal >=60 [facility] Comment on above: Performed By: #### L IPID, URIC, CMP #### [facility] [address] [place] [address] Dr. Shmuel Ji EGFR-NON AF [facility] >60 Normal >=60 [facility] Comment on above: Performed By: #### L IPID, URIC, CMP #### [facility] [address] [place] [address] Dr. Shmuel Ji Globulin (S) [Mass/Vol] 3.4 g/dL Normal [facility] Comment on above: Performed By: #### L IPID, URIC, CMP #### [facility] [address] [place] [address] Dr. Shmuel Ji Glucose [Mass/Vol] 97 mg/dL Normal 74-106 [facility] Comment on above: Performed By: #### L IPID, URIC, CMP #### [facility] [address] [place] [address] Dr. Shmuel Ji Potassium [Moles/Vol] 4.4 mmol/L Normal 3.5-5.1 [facility] Comment on above: Performed By: #### L IPID, URIC, CMP #### [facility] [address] [place] [address] Dr. Shmuel Ji Protein [Mass/Vol] 7.0 g/dL Normal 6.4-8.2 [facility] Comment on above: Performed By: #### L IPID, URIC, CMP #### [facility] [address] [place] [address] Dr. Shmuel Ji Sodium [Moles/Vol] 141 mmol/L Normal 136-145 [facility] Comment on above: Performed By: #### L IPID, URIC, CMP #### [facility] [address] [place] [address] Dr. Shmuel Ji Urea nitrogen [Mass/Vol] 16.0 mg/dL Normal 7.0-18.0 [facility] Comment on above: Performed By: #### L IPID, URIC, CMP #### [facility] [address] [place] [address] Dr. Shmuel Ji Urea nitrogen/Creatinine [Mass ratio] 18.8 mg/mg Normal [facility] Comment on above: Performed By: #### L IPID, URIC, CMP #### [facility] [address] [place] [address] Dr. Shmuel Ji URIC ACID SERUMon 11-02-2021 Urate [Mass/Vol] 6.6 mg/dL Normal 3.5-7.2 [facility] Comment on above: Performed By: #### L IPID, URIC, CMP #### [facility] [address] [place] [address] Dr. Shmuel Ji Vital Signs Date Time Vital Sign Value Performing Clinician Juan villalobos 04-20-2023 14:42-0500 Blood Pressure Location Ghulam SIMMONS [facility] [place] 04-20-2023 14:42-0500 Diastolic blood pressure 86 mm[Hg] Ghulam SIMMONS [facility] [place] 11-08-2023 14:42-0500 Heart rate 80 /min Ghulam SIMMONS [facility] [place] 04-20-2023 14:42-0500 Respiratory rate 16 /min Ghulam SIMMONS [facility] [place] 04-20-2023 14:42-0500 Systolic blood pressure 128 mm[Hg] Ghulam SIMMONS [facility] Encounters Encounter Date Encounter Type Care Provider Facility Start: 09-18-2024 End: 09-18-2024 ambulatory Ghulam SIMMONS Facility:[facility] Start: 04-20-2023 End: 04-20-2023 Patient encounter procedure Ghulam SIMMONS General Surgery [facility] Start: 08-06-2022 End: 08-06-[address] GHULAM SIMMONS . Facility: Start: 11-05-2021 Encounter for genera l adult medical examination without abnormal findings STALIN DEL VALLE [facility] Start: 11-02-2021 End: 11-03-2021 ambulatory STALIN DEL VALLE Facility:[facility] Start: 11-02-2021 End: 11-03-2021 Encounter for general adult medical examination without abnormal findings STALIN DEL VALLE Facility: Procedures Date Procedure Procedure Detail Performing Clinician Start: 11-02-2021 PSA screening STALIN COLLINS Comment on above: Performed By: #### P [facility] #### [facility] [address] [place] [address] Dr. Shmuel Ji Incision and drainag e of abscess Ghulam SIMMONS Comment on above: perirectal Incision of thrombos ed hemorrhoid Ghulam SIMMONS Immunizations Immunization Date Immunization Notes Care Provider Fa ciliave 06-04-2021 SARS-CoV-2 (COVID-19 ) mRNA-1273 vaccine Ghulam HUANGL [facility] Comment on above: Result Comment: 2022: TPV50 10-01-2020 SARS-CoV-2 (COVID-19 ) mRNA-1273 vaccine Ghulam NILL [facility] Comment on above: Result Comment: 2022: TPV50 09-03-2020 SARS-CoV-2 (COVID-19 ) mRNA-1273 vaccine Ghulam SIMMONS [facility] Comment on above: Result Comment: 2022: TPV50 NEGATED: Highlighted row has not occurred!04-20-2023 influenza virus vaccine, unspecified formulation Ghulam SIMMONS [facility] NEGATED: Highlighted row has not occurred!08-06-2022 influenza virus vaccine, unspecified formulation Ghulam SIMMONS [facility] Payers Date Payer Category Payer Unknown [id number] 1965 Unknown [id number] 1967 Unknown [id number] 1959 Unknown [id number] Social History Date Type Detail Facility Start: 04-20-2023 Tobacco smoking status Light t obacco smoker (finding) [facility] Tobacco smoking status Never Gener [facility] [place] Sex Assigned At Male [facility] Functional Status Date Assessment Result Facility 04-20-2023 Functional Status N/A General [facility] Clinical Note 09-18-2024 Note Date & Type [...] TPV50 SARS-CoV-2 (COVID (more content not included)... [facility] Comment on above: Result Comment: [...] data available for this section [facility] [place] Summary Purpose Family History No Family History Records Found No data available for this section No Family History Records Found Advance Directives No Advanced Directives Records FoundNo Advanced Directives Records Found Additional Source Comments (unrecognized sect ion and content) No Status Records FoundNo Status Records Found INFORMATION SOURCE (unrecogn ized section and content) DATE CREATED AUTHOR 08/11/2022 [facility] DATE CREATED AUTHOR AUTHOR'S ORGANIZ ATION 09/19/2024 [facility] Patient Care team informatio n (unrecognized section and content) Personnel Name: STALIN DEL VALLE CNP Address: Address: [facility], [address] FOR RECORDS PERTAINING TO PATIENTS WHO [...] BE BASED ON THE PRIMARY CLINICAL RECORDS. [employer] provides no warranty or guarantee of the accuracy or completeness of information in this document.
[2024-09-26 06:30] VITALS: BP 139/94; PULSE 82; TEMP 35.6; O2SAT 95; BMI 24.3
[2024-09-26] MEDS: 0.9 % SODIUM CHLORIDE 500 ML 50 ML IV ×2 (06:58→07:45)
[2024-09-26 07:48] VITALS: BP 128/91; PULSE 73; TEMP 36.3; O2SAT 100
[2024-09-26 08:03] VITALS: BP 124/92; PULSE 64; TEMP 36.2; O2SAT 99
[2024-09-26 08:18] VITALS: BP 147/97; PULSE 74; TEMP 36.2; O2SAT 96
== END 2024-09-26 08:18 | disposition home or self-care (01) ==
PROVIDERS: PCP Nurse Practitioner Family; Visit Provider Surgery
PROC: (CPT 811; principal; 2024-09-26 07:30)
DX: K62.5 Hemorrhage of anus and rectum (principal); K57.30 Diverticulosis of large intestine without perforation or abscess without bleeding; D12.4 Benign neoplasm of descending colon; K62.1 Rectal polyp; F17.210 Nicotine dependence, cigarettes, uncomplicated; I10 Essential (primary) hypertension
CPT/HCPCS: 45380; J2704